=== PATIENT | female | born 1960 | race Caucasian/White ===

== ENCOUNTER → 2016-07-30 | Outpatient (CLI) | payer MEDICARE ==
[2014-03-29 10:52] VITALS: BP 134/63
[~2016-07-30] MED LIST: ALLO300T PO; ASPI-482 PO; CA C1TAB28 PO; CINN500C PO; DOXA4TAB3 PO; FERR325T3 PO; FLUO40CA2 PO; FURO40TA4 PO; HYDR50TA6 PO; LEVO88TA4 PO; LISI-334 PO; LORA10CA PO; LUTE1CAP PO; MAGN250T PO; METF-620 PO; METO-269 PO; MULT1CAP15 PO; MUPI22OI2 TP; NAPR220T70 PO; OMEP40CA5 PO; OXYC5CAP3 PO; PIOG45TA19 PO; POTA20TA12 PO; RANI150C PO; SIMV40TA3 PO; UBID100C12 PO
--- NOTE | 2016-07-30 12:38 | RAD ---
Indication six-month follow-up. Targeted ultrasound of the left breast was performed. Examination was targeted to the 3:00 position of the breast where a well-defined mass was seen on an examination 02/21/2016. Previously demonstrated mass is again seen. This mass now measures 0.6 x 0.4 cm whereas previously the corresponding measurements were 0.6 x 0.6. The finding remains most compatible with a cyst. Follow-up bilateral mammography is suggested in January of this year and, depending on the results of the mammogram, further ultrasound imaging could be performed. IMPRESSION: Known mass at the 3:00 position of the left breast persists but appears slightly smaller. Follow-up mammography in 6 months. Probably benign. BI-RADS 3
== END | disposition home or self-care (01) ==
LOC: KCIC US 11:55
PROVIDERS: ATTEND Family Medicine
DX: R92.8 Other abnormal and inconclusive findings on diagnostic imaging of breast (principal)
CPT/HCPCS: 76641

== ENCOUNTER → 2017-02-15 | Outpatient (CLI) | payer MEDICARE ==
[2014-03-29 10:52] VITALS: BP 134/63
[~2017-02-15] MED LIST changes: -CINN500C PO; +CINN500C2 PO; -MAGN250T PO; +MAGN250T2 PO; +OXYC5CAP PO; -OXYC5CAP3 PO; -PIOG45TA19 PO; +PIOG45TA40 PO; -UBID100C12 PO; +UBID100C40 PO
--- NOTE | 2017-02-15 15:06 | KCIC ---
DATE: 02/15/2017 EXAM: MAMMO VEGA DIAG BILAT Bilateral digital diagnostic mammography to include digital breast tomosynthesis (3D mammography) HISTORY: Six-month follow-up of nodule in the left breast. COMPARISON: 02/11/2016 This study was interpreted with the benefit of Computerized Aided Detection (CAD). The breast parenchyma shows scattered fibroglandular densities. Breast parenchyma level B. FINDINGS: Two Digital MLO and CC mammograms of both breasts were obtained. Additionally digital breast tomosynthesis (3D mammography) images of both breasts in the MLO and CC projections were performed. Comparison study is dated 02/13/2016. Additional comparison is made to left breast ultrasound dated 07/30/2016. The breast parenchyma is composed of scattered fibroglandular densities which can obscure a lesion on mammography (breast density code B). No spiculated mass is seen. No malignant appearing calcification or area of architectural distortion is noted. The nodule within the upper outer quadrant left breast has decreased in size since the previous examination. It represented a simple cyst on ultrasound. No new mass lesion is seen. Digital breast tomosynthesis images demonstrate no spiculated mass or malignant appearing calcification. I would recharacterize the patient's mammograms BI-RADS Category 2 benign findings with recommendation for routine yearly screening mammography for follow-up. IMPRESSION: BI-RADS Category 2 benign findings. There is no mammographic evidence of malignancy. Routine yearly screening mammography is recommended for follow-up. BI-RADS CATEGORY: 2 BENIGN FINDING(S) RECOMMENDED FOLLOW-UP: 12M 12 MONTH FOLLOW-UP PQRS compliance statement: Patient information was entered into a reminder system with a target due date 02/15/2017 for the next mammogram. Mammography is a sensitive method for finding small breast cancers, but it does not detect them all and is not a substitute for careful clinical examination. A negative mammogram does not negate a clinically suspicious finding and should not result in delay in biopsying a clinically suspicious abnormality. "Our facility is accredited by the [employer] Mammography Program."
== END | disposition home or self-care (01) ==
LOC: KCIC MAMMO 12:29
PROVIDERS: ATTEND Family Medicine
DX: N63.20 Unspecified lump in the left breast, unspecified quadrant (principal)
CPT/HCPCS: G0204; G0279; 77062; 77066

== ENCOUNTER 2017-12-21 10:06 | Inpatient (IN) | payer MEDICARE ==
[~2017-12-21] VITALS: Ht 160 cm; Wt 143.8 kg
[~2017-12-21 10:06] MED LIST changes: -METF-620 PO; +METF10007 PO
[2017-12-21] MEDS ORDERED: IPRATRPIUM/ALBUTEROL 0.5/2.5MG 3 ML NEBU. NEB ONE (11:30)
--- NOTE | 2017-12-21 11:37 | PHYS DOC ---
Past Medical History Past Medical History: Anemia, Diabetes-Type II, High Cholesterol, Hypertension , Hypothyroid, MRSA, Other Additional Past Medical Histor: gout, sleep apnea, acid reflux Past Surgical History: Hysterectomy, Tonsillectomy, Other Additional Past Surgical Histo: back surgery x 2, knee surgery Alcohol Use: None Drug Use: None Adult General Chief Complaint Chief Complaint: Congestion HPI HPI Patient is a 57-year-old female, with multiple underlying health problems, including obesity, diabetes, hypertension, anemia, and chronic venous stasis, who presents to the emergency department for evaluation. She states that for the past 3 Weeks, she has had nasal congestion, hoarseness in her voice, and a cough. She states that her cough has occasionally been productive of yellowish sputum. This last occurred several days ago. She has not had any chest pain, either pleuritic or exertional, but does have some soreness in her chest from coughing so much. She has seen 2 covering physicians for her primary care provider and been on 2 rounds of antibiotics, doxycycline and amoxicillin, and has also been on Tessalon Perles and Phenergan With Codeine, without relief. She denies any dizziness or lightheadedness, numbness, weakness, pleuritic chest pain, exertional chest pain, orthopnea, and although she has had some low- grade fevers subjectively over the past few days has not been febrile recently. There are no alleviating or exacerbating factors to her symptoms otherwise. Review of Systems Review of Systems Constitutional: Denies lethargy, or focal weakness. Reports generalized fatigue. [] Eyes: Denies change in visual acuity, redness, or eye pain [] HENT: Denies sore throat. Reports nasal congestion and hoarseness. [] Respiratory: Denies pleuritic pain.[] Cardiovascular: No additional information not addressed in HPI [] GI: Denies abdominal pain, nausea, vomiting, bloody stools or diarrhea [] : Denies dysuria or hematuria [] Musculoskeletal: Denies back pain or joint pain [] Integument: Denies rash or skin lesions [] Neurologic: Denies headache, focal weakness or sensory changes [] Endocrine: Denies polyuria or polydipsia [] All other systems were reviewed and found to be within normal limits, except as documented in this note. Current Medications Current Medications Current Medications Medications (Trade) Dose Ordered Sig/Trent Start Time Stop Time Status Last Admin Dose Admin Albuterol/ Ipratropium (Duoneb) 3 ml 1X ONCE 12/21/17 11:30 12/21/17 11:31 DC Allergies Allergies Allergies Coded Allergies Type Severity Reaction Last Updated Verified Sulfa (Sulfonamide Antibiotics) Allergy Severe ANAPHYLAXIS 03/29/14 Yes acetaminophen Allergy Intermediate FEELING OF HAVING A HEART ATTACK 03/29/14 Yes latex Allergy Intermediate 03/29/14 Yes morphine Allergy Intermediate Itching 03/29/14 Yes Physical Exam Physical Exam PHYSICAL EXAM: CONSTITUTIONAL: Well developed, well nourished HEAD: normocephalic, atraumatic EENT: PERRL, EOMI. Conjunctivae normal color, sclerae non-icteric; moist mucous membranes. Nasal congestion is present. The oropharynx is not erythematous. NECK: Supple, non-tender; no meningismus. LUNGS: Lungs CTA, breathing even and unlabored. Normal air movement. There are no rales, wheezes, or rhonchi. HEART: Regular rate and rhythm, no murmur CHEST: No deformity; non-tender ABDOMEN: The abdomen is soft, and non-tender, no masses or bruits. EXTREM: Normal ROM; no deformity, no calf tenderness. Normal pulses palpable in all extremities. There is bilateral pedal edema, with chronic thickening of the skin and erythema, consistent with chronic venous stasis. SKIN: No rash; no diaphoresis NEURO: Alert; normal speech and cognition; CN's grossly intact; strength grossly intact without focal deficit. BACK: No CVA TTP. Current Patient Data Vital Signs Vital Signs Date Time Temp Pulse Resp B/P (MAP) Pulse Ox O2 Delivery O2 Flow Rate FiO2 12/21/17 11:48 97 Room Air 12/21/17 11:20 98.6 66 22 133/61 (85) 98.6 Lab Values Laboratory Tests Test 12/21/17 12:15 White Blood Count 11.5 x10^3/uL (4.0-11.0) H Red Blood Count 3.38 x10^6/uL (3.50-5.40) L Hemoglobin 9.8 g/dL (12.0-15.5) L Hematocrit 29.0 % (36.0-47.0) L Mean Corpuscular Volume 86 fL (79-100) Mean Corpuscular Hemoglobin 29 pg (25-35) Mean Corpuscular Hemoglobin Concent 34 g/dL (31-37) Red Cell Distribution Width 17.6 % (11.5-14.5) H Platelet Count 377 x10^3/uL (140-400) Neutrophils (%) (Auto) 86 % (31-73) H Lymphocytes (%) (Auto) 7 % (24-48) L Monocytes (%) (Auto) 7 % (0-9) Eosinophils (%) (Auto) 0 % (0-3) Basophils (%) (Auto) 1 % (0-3) Neutrophils # (Auto) 9.8 x10^3uL (1.8-7.7) H Lymphocytes # (Auto) 0.8 x10^3/uL (1.0-4.8) L Monocytes # (Auto) 0.8 x10^3/uL (0.0-1.1) Eosinophils # (Auto) 0.0 x10^3/uL (0.0-0.7) Basophils # (Auto) 0.1 x10^3/uL (0.0-0.2) Platelet Estimate Pending Sodium Level 126 mmol/L (136-145) L Potassium Level 4.6 mmol/L (3.5-5.1) Chloride Level 88 mmol/L (98-107) L Carbon Dioxide Level 29 mmol/L (21-32) Anion Gap 9 (6-14) Blood Urea Nitrogen 17 mg/dL (7-20) Creatinine 1.0 mg/dL (0.6-1.0) Estimated GFR (Cockcroft-Gault) 57.1 BUN/Creatinine Ratio 17 (6-20) Glucose Level 106 mg/dL (70-99) H Calcium Level 8.8 mg/dL (8.5-10.1) Total Bilirubin 0.8 mg/dL (0.2-1.0) Aspartate Amino Transferase (AST) 16 U/L (15-37) Alanine Aminotransferase (ALT) 19 U/L (14-59) Alkaline Phosphatase 107 U/L (46-116) Creatine Kinase 35 U/L (26-192) Creatine Kinase MB (Mass) 0.7 ng/mL (0.0-3.6) Creatine Kinase MB Relative Index % (0-4) Troponin I Quantitative < 0.017 ng/mL (0.000-0.055) AY-Mrw-S-Type Natriuretic Peptide 694 pg/mL (0-124) H Total Protein 6.5 g/dL (6.4-8.2) Albumin 3.1 g/dL (3.4-5.0) L Albumin/Globulin Ratio 0.9 (1.0-1.7) L Laboratory Tests 12/21/17 12:15 Laboratory Tests 12/21/17 12:15 EKG EKG [Normal sinus rhythm at a rate of 59 beats for minute, normal axis, normal intervals. There are no acute ischemic ST/T changes.] Radiology/Procedures Radiology/Procedures [PROCEDURE: CHEST PA & LATERAL PA and lateral chest radiograph. History: Cough, bronchitis for 3 weeks. Comparison: CT chest June 29, 2006. Findings: Cardiac silhouette is mildly enlarged. Aortic atherosclerosis is seen. No pneumothorax is seen. There is mild blunting of costophrenic angles on lateral view, suggesting small bilateral pleural effusions. Pulmonary vascularity appears accentuated, suggesting changes of mild congestive heart failure. No large consolidation is seen. There is focal lateral wall pleural thickening involving the left lower hemithorax, apparently new. Impression: 1. Evidence of mild congestive heart failure. Small bilateral pleural effusions. 2. Focal lateral pleural thickening involving the left lower hemithorax, apparently new in the interval. ] Course & Med Decision Making Course & Med Decision Making Pertinent Labs and Imaging studies reviewed. (See chart for details) [2:05 PM: The patient's condition remained stable. I have no old labs for comparison. She is noted to be hyponatremic. Do wonder whether her persistent cough likely related to a CHF exacerbation. The case was discussed with the hospitalist will admit the patient for further evaluation and treatment.] Dragon Disclaimer Dragon Disclaimer This electronic medical record was generated, in whole or in part, using a voice recognition dictation system. Departure Departure Impression: Primary Impression: Hyponatremia Additional Impressions: CHF (congestive heart failure) Cough Disposition: ADMITTED INPATIENT Admitting Physician: Marcus Islas Referrals: SHANNAN VALENTINE (PCP) Problem Qualifiers LAUREN ABRAHAM MD Dec 21, 2017 11:37
--- NOTE | 2017-12-21 11:51 | EKG ---
[address] [place] [id number] Test Date: 2017-12-21 Test Time: 11:33:09 Pat Name: LARY HELLER Department: Room: Gender: F [employer] Operator: : [id number] Requested By: LAUREN ABRAHAM Order Number: [id number] Reading MD: Yordan Powers Measurements Intervals Siler Rate: 59 P: 0 VA: 178 QRS: 25 QRSD: 94 T: 29 QT: 430 QTc: 430 Interpretive Statements SINUS RHYTHM QRS(T) CONTOUR ABNORMALITY CONSIDER INFERIOR MYOCARDIAL DAMAGE Electronically Signed On 12-23-2017 11:21:35 CDT by Yordan Powers
--- NOTE | 2017-12-21 12:05 | RAD ---
PA and lateral chest radiograph. History: Cough, bronchitis for 3 weeks. Comparison: CT chest June 29, 2006. Findings: Cardiac silhouette is mildly enlarged. Aortic atherosclerosis is seen. No pneumothorax is seen. There is mild blunting of costophrenic angles on lateral view, suggesting small bilateral pleural effusions. Pulmonary vascularity appears accentuated, suggesting changes of mild congestive heart failure. No large consolidation is seen. There is focal lateral wall pleural thickening involving the left lower hemithorax, apparently new. Impression: 1. Evidence of mild congestive heart failure. Small bilateral pleural effusions. 2. Focal lateral pleural thickening involving the left lower hemithorax, apparently new in the interval. Electronically signed by: Blue Avery MD (12/21/2017 12:02 PM) [place] [id number]
[2017-12-21 13:11] LABS: CREATINE KINASE 35 U/L (26-192)
[2017-12-21 13:12] LABS: ALBUMIN 3.1 g/dL (3.4-5.0); ALBUMIN/GLOBULIN RATIO 0.9 (1.0-1.7); CALCIUM 8.8 mg/dL (8.5-10.1); GFR 57.1; TOTAL BILIRUBIN 0.8 mg/dL (0.2-1.0); TOTAL PROTEIN 6.5 g/dL (6.4-8.2)
[2017-12-21 13:13] LABS: POTASSIUM 4.6 mmol/L (3.5-5.1)
[2017-12-21 13:44] LABS: BASO # 0.1 x10^3/uL (0.0-0.2); BASO % 1 % (0-3); EOS % 0 % (0-3); HEMOGLOBIN 9.8 g/dL (12.0-15.5); LYMPH # 0.8 x10^3/uL (1.0-4.8); LYMPH % 7 % (24-48); MEAN CORPUSCULAR HEMOGLOBIN 29 pg (25-35); MEAN CORPUSCULAR HGB CONC 34 g/dL (31-37); MEAN CORPUSCULAR VOLUME 86 fL (79-100); MONO # 0.8 x10^3/uL (0.0-1.1); MONO % 7 % (0-9); NEUT # 9.8 x10^3uL (1.8-7.7); NEUT % 86 % (31-73); PLATELET COUNT 377 x10^3/uL (140-400); RED BLOOD COUNT 3.38 x10^6/uL (3.50-5.40); RED CELL DISTRIBUTION WIDTH 17.6 % (11.5-14.5); WHITE BLOOD COUNT 11.5 x10^3/uL (4.0-11.0)
[2017-12-21] MEDS ORDERED: FUROSEMIDE 40 MG/4 ML VIAL. IVP ONE (14:15)
[2017-12-21 14:45] LABS: % BANDS 5 % (0-9); % LYMPHS 8 % (24-48); % MONOS 11 % (0-10); % SEGS 76 % (35-66)
[2017-12-21 14:48] LABS: ANISOCYTOSIS SLIGHT; OVALOCYTES FEW; PLT ESTIMATE ADEQUATE (ADEQUATE)
[2017-12-21 15:00] VITALS: BP 135/61
[2017-12-21] MEDS ORDERED: DEXTROSE 50% 25 GM / 50ML DISP.SYRIN. IV PRN (15:30)
--- NOTE | 2017-12-21 15:33 | PDOC2 ---
CARDIAC CONSULT DATE OF CONSULT Date of Consult DATE: 12/21/17 TIME: 15:24 REASON FOR CONSULT Reason for Consult: chf REFERRING PHYSICIAN Referring Physician: Fullbright SOURCE Source: Chart review, Patient HISTORY OF PRESENT ILLNESS HISTORY OF PRESENT ILLNESS This is a pleasant 57 yo female admitted for complains of progressive cough and SOA. Reports that she has been having nasal congestion which progressed to cough and productive with mostly yellow sputum and at times with green sputum. She was started on amoxicillin on 12/11 by her PCP and then changed to doxycycline last Wednesday because she was not getting any better. No recorded fever but possibly chills. She has been taking mucinex, tessalon pearls. She has been craving water and has been drinking about 3-4 L of water daily. She has multiple medications and has been compliant with her medications including HCTZ, lisinopril and her DM medications. She has not been able to use her CPAP with nasal pillow in the last 2 weeks due to her nasal congestion. She has not able to sleep well and just has been taking cat naps intermittently. Denies any chest pain or palpiations. Reports no significant swelling to her LE. No past CAD, CHF, VTE, but has taken lasix in the past due to chronic leg edema. PAST MEDICAL HISTORY Cardiovascular: HTN, Hyperlipidemia, Other (chronic leg edema) Pulmonary: Other (KAYLAH) CENTRAL NERVOUS SYSTEM: Other (No pertinent history) GI: GERD, Hemorrhoids, Other (hiatal hernia) Heme/Onc: Anemia NOS Hepatobiliary: No pertinent hx Psych: Anxiety Musculoskeletal: low back pain (sacroilitis), Osteoarthritis, Other Rheumatologic: Gout Infectious disease: Other (MRSA) ENT: Allergic Rhinitis Renal/: No pertinent hx Endocrine: Diabetes (2), Hypothyroidism Dermatology: Other (venous dermatitis) PAST SURGICAL HISTORY Past Surgical History: Arthroscopy (right knee), Hysterectomy, Other (back surgery) FAMILY HISTORY Family History noncontributory to CV SOCIAL HISTORY Smoke: Quit (17 yrs quit 1993) ALCOHOL: none Drugs: None Lives: with Family ALLERGIES ALLERGIES: Coded Allergies: Sulfa (Sulfonamide Antibiotics) (Verified Allergy, Severe, ANAPHYLAXIS, ) acetaminophen (Verified Allergy, Intermediate, FEELING OF HAVING A HEART ATTACK, 03/29/14) latex (Verified Allergy, Intermediate, 03/29/14) TAPE PULLS SKIN OFF morphine (Verified Allergy, Intermediate, Itching, 03/29/14) ROS Review of System 14 point ROS evaluated with pertinent positives noted per HPI PHYSICAL EXAM General: Alert, Oriented X3, Cooperative, No acute distress HEENT: Mucous membr. moist/pink Lungs: Other (basialr crackles) Heart: Regular rate, Other (distant heart sounds) Abdomen: Soft, Other (obese) Extremities: No cyanosis, Other (1-2+ bilateral LE pitting edema) Skin: Other (healed right otto wound. venous dermatitis with dry skin to LE. ) Neuro: Normal speech, Sensation intact Psych/Mental Status: Mental status NL, Mood NL MUSCULOSKELETAL: Osteoarthritic changes both hands VITALS VITALS Vital Signs Date Time Temp Pulse Resp B/P (MAP) Pulse Ox O2 Delivery O2 Flow Rate FiO2 12/21/17 14:00 68 18 150/65 (93) 97 Room Air 12/21/17 11:20 98.6 98.6 LABS Lab: Laboratory Tests Test 12/21/17 12:15 White Blood Count 11.5 x10^3/uL (4.0-11.0) Red Blood Count 3.38 x10^6/uL (3.50-5.40) Hemoglobin 9.8 g/dL (12.0-15.5) Hematocrit 29.0 % (36.0-47.0) Mean Corpuscular Volume 86 fL (79-100) Mean Corpuscular Hemoglobin 29 pg (25-35) Mean Corpuscular Hemoglobin Concent 34 g/dL (31-37) Red Cell Distribution Width 17.6 % (11.5-14.5) Platelet Count 377 x10^3/uL (140-400) Neutrophils (%) (Auto) 86 % (31-73) Lymphocytes (%) (Auto) 7 % (24-48) Monocytes (%) (Auto) 7 % (0-9) Eosinophils (%) (Auto) 0 % (0-3) Basophils (%) (Auto) 1 % (0-3) Neutrophils # (Auto) 9.8 x10^3uL (1.8-7.7) Lymphocytes # (Auto) 0.8 x10^3/uL (1.0-4.8) Monocytes # (Auto) 0.8 x10^3/uL (0.0-1.1) Eosinophils # (Auto) 0.0 x10^3/uL (0.0-0.7) Basophils # (Auto) 0.1 x10^3/uL (0.0-0.2) Segmented Neutrophils % 76 % (35-66) Band Neutrophils % 5 % (0-9) Lymphocytes % 8 % (24-48) Monocytes % 11 % (0-10) Platelet Estimate Adequate (ADEQUATE) Large Platelets Few Giant Platelets Few Basophilic Stippling Present Anisocytosis Slight Ovalocytes Few Sodium Level 126 mmol/L (136-145) Potassium Level 4.6 mmol/L (3.5-5.1) Chloride Level 88 mmol/L (98-107) Carbon Dioxide Level 29 mmol/L (21-32) Anion Gap 9 (6-14) Blood Urea Nitrogen 17 mg/dL (7-20) Creatinine 1.0 mg/dL (0.6-1.0) Estimated GFR (Cockcroft-Gault) 57.1 BUN/Creatinine Ratio 17 (6-20) Glucose Level 106 mg/dL (70-99) Calcium Level 8.8 mg/dL (8.5-10.1) Total Bilirubin 0.8 mg/dL (0.2-1.0) Aspartate Amino Transf (AST/SGOT) 16 U/L (15-37) Alanine Aminotransferase (ALT/SGPT) 19 U/L (14-59) Alkaline Phosphatase 107 U/L (46-116) Creatine Kinase 35 U/L (26-192) Creatine Kinase MB (Mass) 0.7 ng/mL (0.0-3.6) Creatine Kinase MB Relative Index % (0-4) Troponin I Quantitative < 0.017 ng/mL (0.000-0.055) PQ-Vej-I-Type Natriuretic Peptide 694 pg/mL (0-124) Total Protein 6.5 g/dL (6.4-8.2) Albumin 3.1 g/dL (3.4-5.0) Albumin/Globulin Ratio 0.9 (1.0-1.7) ASSESSMENT/PLAN ASSESSMENT/PLAN 1. Acute bronchitis/URI 2. Acute diastolic CHF: induced by 3-4L of daily H20 ingestion, KAYLAH/obesity and bronchitis. suspect pulmonary HTN 3. HTN: controlled. on home lisinopril and HCTZ. 4. Hx of depression: on prozac 5. Hyponatremia/polydipsia: multifactorial as above 6. Morbid obesity: BMI 57 7. DM2 8. HLP 9. Polypharmacy Recommendations 1. TTE, lipids. CT chest noncontrast. 2. Lasix x1 received in ED. BMP and Mg in AM. Lasix therapy. 3. Unable to utilize CPAP currently due to nasal congestion. May utilize O2 NC at hs. 4. Continue with secondary prevention measures. BHARTI FIERRO CLEAN ROOM TECHNICIAN Dec 21, 2017 15:33
[2017-12-21] MEDS ORDERED: LEVO125T PO (16:01)
[2017-12-21 16:03] LABS: CHOLESTEROL/HDL RATIO 2.4
[2017-12-21] MEDS: MUPIROCIN 2 % NASAL OINTMENT 22GM TUBE. TP SCH (16:15)
[2017-12-21 16:22] LABS: BILIRUBIN,URINE NEGATIVE (NEG); CLARITY,URINE CLEAR; COLOR,URINE YELLOW; NITRITE,URINE NEGATIVE (NEG); PROTEIN,URINE NEGATIVE (NEG-TRACE)
[2017-12-21 16:28] LABS: SQUAMOUS EPITHELIAL CELL,UR MANY /LPF
[2017-12-21 16:29] LABS: BACTERIA,URINE FEW /HPF (0-FEW); RBC,URINE 0 /HPF (0-2); YEAST,URINE PRESENT /HPF
--- NOTE | 2017-12-21 16:40 | PDOC1 ---
History and Physical Date of Admission Date of Admission DATE: 12/21/17 TIME: 16:40 Identification/Chief Complaint Chief Complaint cough and productive with mostly yellow -green sputum. She was started on amoxicillin on 12/11 by her PCP and then changed to doxycycline last Wednesday will rx with iv zosyn, was not getting any better. No recorded fever but possibly chills. She has been taking mucinex, tessalon pearls, has been craving water and has been drinking about 3-4 L of water daily. Past Medical History Past Medical History Past Medical History Past Medical History Past Medical History: Anemia, Diabetes-Type II, High Cholesterol, Hypertension , Hypothyroid, MRSA, Other Additional Past Medical Histor: gout, sleep apnea, acid reflux Past Surgical History: Hysterectomy, Tonsillectomy, Other Additional Past Surgical Histo: back surgery x 2, knee surgery Alcohol Use: None Drug Use: None family hx obesity Cardiovascular: HTN, Hyperlipidemia, Other (chronic leg edema) Pulmonary: Other (KAYLAH) CENTRAL NERVOUS SYSTEM: Other (No pertinent history) GI: GERD, Hemorrhoids, Other (hiatal hernia) Heme/Onc: Anemia NOS Hepatobiliary: No pertinent hx Psych: Anxiety Musculoskeletal: low back pain (sacroilitis), Osteoarthritis, Other Rheumatologic: Gout Infectious disease: Other (MRSA) ENT: Sincusitis, Allergic Rhinitis Renal/: No pertinent hx Endocrine: Diabetes (2), Hypothyroidism Dermatology: Cellulitis, Other (venous dermatitis) Past Surgical History Past Surgical History: Arthroscopy (right knee), Hysterectomy, Other (back surgery) Family History Family History: Hypertension Family History: Parent Social History Smoke: No (17 yrs quit 1993) ALCOHOL: none Drugs: None Current Problem List Problem List Problems Medical Problems: (1) CHF (congestive heart failure) Status: Acute (2) Cough Status: Acute (3) Hyponatremia Status: Acute Current Medications Current Medications Current Medications Albuterol/ Ipratropium (Duoneb) 3 ml 1X ONCE NEB ; Start 12/21/17 at 11:30; Stop 12/21/17 at 11:31; Status DC Furosemide (Lasix) 40 mg 1X ONCE IVP ; Start 12/21/17 at 14:15; Stop at 14:16; Status DC Insulin Human Lispro (HumaLOG) 0-7 UNITS TIDWMEALS SQ ; Start 12/21/17 at 17:00 Dextrose (Dextrose 50%-Water Syringe) 12.5 gm PRN Q15MIN PRN IV SEE COMMENTS; Start 12/21/17 at 15:30 Allopurinol (Zyloprim) 300 mg DAILY PO ; Start 12/22/17 at 09:00 Aspirin (Ecotrin) 81 mg DAILY PO ; Start 12/22/17 at 09:00 Doxazosin Mesylate (Cardura) 2 mg HS PO ; Start 12/21/17 at 21:00 Lisinopril (Prinivil) 20 mg DAILY PO ; Start 12/22/17 at 09:00 Ferrous Sulfate (Feosol) 650 mg DAILYWBKFT PO ; Start 12/22/17 at 08:00 Fluoxetine HCl (PROzac) 40 mg DAILY PO ; Start 12/22/17 at 09:00 Hydrochlorothiazide (Hydrodiuril) 50 mg DAILY PO ; Start 12/22/17 at 09:00 Levothyroxine Sodium (Synthroid) 125 mcg DAILY06 PO ; Start 12/22/17 at 06:00 Cetirizine HCl (ZyrTEC) 10 mg DAILY PO ; Start 12/22/17 at 09:00 Non-Formulary Medication (Magnesium ) 250 mg DAILY PO ; Start 12/22/17 at 09:00 ; Status UNV Non-Formulary Medication (Metformin Hcl ) 1,000 mg BID PO ; Start 12/21/17 at 21:00; Status UNV Non-Formulary Medication (Metoprolol Succinate (Toprol Xl)) 150 mg DAILY PO ; Start 12/22/17 at 09:00; Status UNV Non-Formulary Medication (Naproxen Sodium (Aleve)) 220 mg PRN DAILY PO ; Start 12/21/17 at 16:00; Status UNV Non-Formulary Medication (Omeprazole ) 40 mg DAILY PO ; Start 12/22/17 at 09:00 ; Status UNV Non-Formulary Medication (Pioglitazone Hcl (Actos)) 45 mg DAILY PO ; Start at 09:00; Status UNV Non-Formulary Medication (Ranitidine Hcl ) 150 mg BID PO ; Start 12/21/17 at 21 :00; Status UNV Non-Formulary Medication (Simvastatin ) 40 mg DAILY PO ; Start 12/22/17 at 09: 00; Status UNV Mupirocin (Bactroban) 22 luc PRN DAILY TP ; Start 12/21/17 at 16:15; Status UNV Active Scripts Active Reported Synthroid (Levothyroxine Sodium) 125 Mcg Tablet 1 Tab PO DAILY Lisinopril 20 Mg Tablet 1 Tab PO DAILY Ranitidine Hcl 150 Mg Capsule 150 Mg PO BID Aleve (Naproxen Sodium) 220 Mg Tablet 220 Mg PO PRN DAILY Mupirocin Ointment (Mupirocin) 22 Gm Oint...g. 22 Gm TP PRN DAILY Fluoxetine Hcl 40 Mg Capsule 40 Mg PO DAILY Aspir 81 (Aspirin) 81 Mg Tablet.dr 81 Mg PO DAILY Allopurinol 300 Mg Tablet 300 Mg PO DAILY Ferrous Sulfate 325 Mg Tablet.dr 650 Mg PO DAILY Claritin (Loratadine) 10 Mg Capsule 10 Mg PO DAILY Hydrochlorothiazide Tablet (Hydrochlorothiazide) 50 Mg Tablet 50 Mg PO DAILY Actos (Pioglitazone Hcl) 45 Mg Tablet 45 Mg PO DAILY Toprol Xl (Metoprolol Succinate) 50 Mg Tab.er.24h 150 Mg PO DAILY Doxazosin Mesylate 4 Mg Tablet 2 Mg PO HS Metformin Hcl 1,000 Mg Tablet 1,000 Mg PO BID Simvastatin 40 Mg Tablet 40 Mg PO DAILY Omeprazole 40 Mg Capsule.dr 40 Mg PO DAILY Co Q-10 (Ubidecarenone) 100 Mg Capsule 100 Mg PO Cinnamon (Cinnamon Bark) 500 Mg Capsule 500 Mg PO DAILY Lutein-Zeaxanthin 25-5 Mg Sfgl (Lutein/Zeaxanthin) 1 Each Capsule 1 Each PO DAILY Magnesium 250 Mg Tablet 250 Mg PO DAILY Allergies Allergies: Coded Allergies: Sulfa (Sulfonamide Antibiotics) (Verified Allergy, Severe, ANAPHYLAXIS, ) acetaminophen (Verified Allergy, Intermediate, FEELING OF HAVING A HEART ATTACK, 03/29/14) latex (Verified Allergy, Intermediate, 03/29/14) TAPE PULLS SKIN OFF morphine (Verified Allergy, Intermediate, Itching, 03/29/14) ROS Review of System Review of Systems Review of Systems Constitutional: Denies lethargy, or focal weakness. pos generalized fatigue.[] Eyes: Denies change in visual acuity, redness, or eye pain [] HENT: Denies sore throat. Reports nasal congestion and hoarseness. [] Respiratory: Denies pleuritic pain.[] Cardiovascular: No additional information not addressed in HPI [] GI: Denies abdominal pain, nausea, vomiting, bloody stools or diarrhea [] : Denies dysuria or hematuria [] Musculoskeletal: Denies back pain or joint pain [] Integument: Denies rash or skin lesions [] Neurologic: Denies headache, focal weakness or sensory changes [] Endocrine: Denies polyuria or polydipsia [] 14 pt systems were reviewed and found to be within normal limits, except as documented . Current Medications HEENT: YES: Nasal congestion ENDOCRINE: No: Breast Changes, Galactorrhea, Hair Pattern Changes, Hot Flashes , Malaise/lethargy, Mood Swings, Palpitations, Polydipsia/polyuria, Skin Changes , Temperature Intolerance, Unexpected Weight Changes, Other Breast: No New/Changing Breast Lumps, No Nipple changes, No Nipple discharge, No Other Respiratory: YES: Cough, SOB with excertion Gastrointestinal: No Nausea, No Vomiting, No Abdominal Pain, No Diarrhea, No Constipation, No Melena, No Hematochezia, No Other Musculoskeletal: Yes Joint Stiffness Physical Exam Physical Exam Physical Exam Physical Exam PHYSICAL EXAM: CONSTITUTIONAL: Well developed, well nourished, very obese HEAD: normocephalic, atraumatic EENT: PERRL, EOMI. Conjunctivae normal color, sclerae non-icteric; moist mucous membranes. oropharynx is not erythematous. NECK: Supple, non-tender; no meningismus. LUNGS: Lungs CTA, breathing even and unlabored. Normal air movement. There are no rales, wheezes, few rhonchi. HEART: Regular rate and rhythm, no murmur CHEST: No deformity; non-tender ABDOMEN: The abdomen is soft, and non-tender, no masses or bruits. EXTREM: Normal ROM; no deformity, no calf tenderness. Normal pulses palpable in all extremities. There is bilateral pedal edema, with chronic thickening of the skin and erythema, consistent with chronic venous stasis. SKIN: No rash; no diaphoresis NEURO: Alert; normal speech and cognition; CN's grossly intact; strength grossly intact without focal deficit. BACK: No CVA TTP. General: Oriented X3, Cooperative HEENT: Atraumatic Lungs: Normal air movement Heart: S1S2 Abdomen: Soft Rectal Exam: not examined PELVIC: Examination not indicated Extremities: No cyanosis Neuro: Cranial nerves 3-12 NL Vitals Vitals Vital Signs Date Time Temp Pulse Resp B/P (MAP) Pulse Ox O2 Delivery O2 Flow Rate FiO2 12/21/17 15:00 98.1 61 20 135/61 (85) 97 Room Air 98.1 Labs Labs Laboratory Tests Test 12/21/17 11:20 12/21/17 12:15 Urine Collection Type Unknown Urine Color Yellow Urine Clarity Clear Urine pH 7.0 Urine Specific [place] 1.020 Urine Protein Negative mg/dL (NEG-TRACE) Urine Glucose (UA) Negative mg/dL (NEG) Urine Ketones (Stick) Negative mg/dL (NEG) Urine Blood Negative (NEG) Urine Nitrite Negative (NEG) Urine Bilirubin Negative (NEG) Urine Urobilinogen Dipstick 1.0 mg/dL (0.2 mg/dL) Urine Leukocyte Esterase Small (NEG) Urine RBC 0 /HPF (0-2) Urine WBC 1-4 /HPF (0-4) Urine Squamous Epithelial Cells Many /LPF Urine Bacteria Few /HPF (0-FEW) Urine Yeast Present /HPF White Blood Count 11.5 x10^3/uL (4.0-11.0) Red Blood Count 3.38 x10^6/uL (3.50-5.40) Hemoglobin 9.8 g/dL (12.0-15.5) Hematocrit 29.0 % (36.0-47.0) Mean Corpuscular Volume 86 fL (79-100) Mean Corpuscular Hemoglobin 29 pg (25-35) Mean Corpuscular Hemoglobin Concent 34 g/dL (31-37) Red Cell Distribution Width 17.6 % (11.5-14.5) Platelet Count 377 x10^3/uL (140-400) Neutrophils (%) (Auto) 86 % (31-73) Lymphocytes (%) (Auto) 7 % (24-48) Monocytes (%) (Auto) 7 % (0-9) Eosinophils (%) (Auto) 0 % (0-3) Basophils (%) (Auto) 1 % (0-3) Neutrophils # (Auto) 9.8 x10^3uL (1.8-7.7) Lymphocytes # (Auto) 0.8 x10^3/uL (1.0-4.8) Monocytes # (Auto) 0.8 x10^3/uL (0.0-1.1) Eosinophils # (Auto) 0.0 x10^3/uL (0.0-0.7) Basophils # (Auto) 0.1 x10^3/uL (0.0-0.2) Segmented Neutrophils % 76 % (35-66) Band Neutrophils % 5 % (0-9) Lymphocytes % 8 % (24-48) Monocytes % 11 % (0-10) Platelet Estimate Adequate (ADEQUATE) Large Platelets Few Giant Platelets Few Basophilic Stippling Present Anisocytosis Slight Ovalocytes Few Sodium Level 126 mmol/L (136-145) Potassium Level 4.6 mmol/L (3.5-5.1) Chloride Level 88 mmol/L (98-107) Carbon Dioxide Level 29 mmol/L (21-32) Anion Gap 9 (6-14) Blood Urea Nitrogen 17 mg/dL (7-20) Creatinine 1.0 mg/dL (0.6-1.0) Estimated GFR (Cockcroft-Gault) 57.1 BUN/Creatinine Ratio 17 (6-20) Glucose Level 106 mg/dL (70-99) Calcium Level 8.8 mg/dL (8.5-10.1) Total Bilirubin 0.8 mg/dL (0.2-1.0) Aspartate Amino Transf (AST/SGOT) 16 U/L (15-37) Alanine Aminotransferase (ALT/SGPT) 19 U/L (14-59) Alkaline Phosphatase 107 U/L (46-116) Creatine Kinase 35 U/L (26-192) Creatine Kinase MB (Mass) 0.7 ng/mL (0.0-3.6) Creatine Kinase MB Relative Index % (0-4) Troponin I Quantitative < 0.017 ng/mL (0.000-0.055) JZ-[id number]-M-Type Natriuretic Peptide 694 pg/mL (0-124) Total Protein 6.5 g/dL (6.4-8.2) Albumin 3.1 g/dL (3.4-5.0) Albumin/Globulin Ratio 0.9 (1.0-1.7) Triglycerides Level 67 mg/dL (0-150) Cholesterol Level 106 mg/dL (0-200) LDL Cholesterol, Calculated 49 mg/dL (0-100) VLDL Cholesterol, Calculated 13 mg/dL (0-40) Non-HDL Cholesterol Calculated 62 mg/dL (0-129) HDL Cholesterol 44 mg/dL (40-60) Cholesterol/HDL Ratio 2.4 Laboratory Tests Test 12/21/17 11:20 12/21/17 12:15 Urine Collection Type Unknown Urine Color Yellow Urine Clarity Clear Urine pH 7.0 Urine Specific [place] 1.020 Urine Protein Negative mg/dL (NEG-TRACE) Urine Glucose (UA) Negative mg/dL (NEG) Urine Ketones (Stick) Negative mg/dL (NEG) Urine Blood Negative (NEG) Urine Nitrite Negative (NEG) Urine Bilirubin Negative (NEG) Urine Urobilinogen Dipstick 1.0 mg/dL (0.2 mg/dL) Urine Leukocyte Esterase Small (NEG) Urine RBC 0 /HPF (0-2) Urine WBC 1-4 /HPF (0-4) Urine Squamous Epithelial Cells Many /LPF Urine Bacteria Few /HPF (0-FEW) Urine Yeast Present /HPF White Blood Count 11.5 x10^3/uL (4.0-11.0) Red Blood Count 3.38 x10^6/uL (3.50-5.40) Hemoglobin 9.8 g/dL (12.0-15.5) Hematocrit 29.0 % (36.0-47.0) Mean Corpuscular Volume 86 fL (79-100) Mean Corpuscular Hemoglobin 29 pg (25-35) Mean Corpuscular Hemoglobin Concent 34 g/dL (31-37) Red Cell Distribution Width 17.6 % (11.5-14.5) Platelet Count 377 x10^3/uL (140-400) Neutrophils (%) (Auto) 86 % (31-73) Lymphocytes (%) (Auto) 7 % (24-48) Monocytes (%) (Auto) 7 % (0-9) Eosinophils (%) (Auto) 0 % (0-3) Basophils (%) (Auto) 1 % (0-3) Neutrophils # (Auto) 9.8 x10^3uL (1.8-7.7) Lymphocytes # (Auto) 0.8 x10^3/uL (1.0-4.8) Monocytes # (Auto) 0.8 x10^3/uL (0.0-1.1) Eosinophils # (Auto) 0.0 x10^3/uL (0.0-0.7) Basophils # (Auto) 0.1 x10^3/uL (0.0-0.2) Segmented Neutrophils % 76 % (35-66) Band Neutrophils % 5 % (0-9) Lymphocytes % 8 % (24-48) Monocytes % 11 % (0-10) Platelet Estimate Adequate (ADEQUATE) Large Platelets Few Giant Platelets Few Basophilic Stippling Present Anisocytosis Slight Ovalocytes Few Sodium Level 126 mmol/L (136-145) Potassium Level 4.6 mmol/L (3.5-5.1) Chloride Level 88 mmol/L (98-107) Carbon Dioxide Level 29 mmol/L (21-32) Anion Gap 9 (6-14) Blood Urea Nitrogen 17 mg/dL (7-20) Creatinine 1.0 mg/dL (0.6-1.0) Estimated GFR (Cockcroft-Gault) 57.1 BUN/Creatinine Ratio 17 (6-20) Glucose Level 106 mg/dL (70-99) Calcium Level 8.8 mg/dL (8.5-10.1) Total Bilirubin 0.8 mg/dL (0.2-1.0) Aspartate Amino Transf (AST/SGOT) 16 U/L (15-37) Alanine Aminotransferase (ALT/SGPT) 19 U/L (14-59) Alkaline Phosphatase 107 U/L (46-116) Creatine Kinase 35 U/L (26-192) Creatine Kinase MB (Mass) 0.7 ng/mL (0.0-3.6) Creatine Kinase MB Relative Index % (0-4) Troponin I Quantitative < 0.017 ng/mL (0.000-0.055) QF-Jgx-U-Type Natriuretic Peptide 694 pg/mL (0-124) Total Protein 6.5 g/dL (6.4-8.2) Albumin 3.1 g/dL (3.4-5.0) Albumin/Globulin Ratio 0.9 (1.0-1.7) Triglycerides Level 67 mg/dL (0-150) Cholesterol Level 106 mg/dL (0-200) LDL Cholesterol, Calculated 49 mg/dL (0-100) VLDL Cholesterol, Calculated 13 mg/dL (0-40) Non-HDL Cholesterol Calculated 62 mg/dL (0-129) HDL Cholesterol 44 mg/dL (40-60) Cholesterol/HDL Ratio 2.4 VTE Prophylaxis Ordered VTE Prophylaxis Devices: Yes VTE Pharmacological Prophylaxi: Yes Assessment/Plan Assessment/Plan impression 1. Acute bronchitis/URI 2. Acute diastolic CHF: excessive H20 ingestion, KAYLAH/obesity and bronchitis. pulmonary HTN 3. HTN: controlled. on home lisinopril and HCTZ. 4. Hx of depression: on prozac 5. Hyponatremia/polydipsia: 6. Morbid obesity:extreme 7. DM2 8. HLP 9. Polypharmacy plan 1. TTE, CT chest noncontrast. 2. Lasix x1 received in ED. BMP and Mg in AM. iv Lasix 3. Unable to utilize CPAP currently due to nasal congestion. O2 NC at hs. 4. secondary prevention measures. 5. glucose control JITENDRA BAIRD MD Dec 21, 2017 16:40
--- NOTE | 2017-12-21 16:48 | RAD ---
CT of the chest without contrast, 12/21/2017: HISTORY: Congestive heart failure, COPD Noncontrast scans were obtained as requested. There is mild calcific plaquing of the thoracic aorta without evidence of aneurysm. A few scattered coronary artery calcifications are present. There is mild generalized cardiomegaly. No mediastinal adenopathy is seen. There is a small right pleural effusion. There is mild associated atelectasis posteriorly in the right lower lobe. Mild scarring is present in the inferior lingular region on the left. There is mild pleural thickening laterally in the left base, probably due to scarring. No pulmonary mass or consolidation is seen. No interlobular septal thickening is evident. No significant left-sided pleural fluid is present. There is moderate bilateral renal cortical scarring. Moderate multilevel degenerative change is present in the spine. IMPRESSION: 1. Cardiomegaly with scattered coronary artery calcifications. 2. Small right pleural effusion with mild associated right lower lobe atelectasis. 3. Mild left basilar pleural/parenchymal scarring. PQRS Compliance Statement: One or more of the following individualized dose reduction techniques were utilized for this examination: 1. Automated exposure control 2. Adjustment of the mA and/or kV according to patient size 3. Use of iterative reconstruction technique Electronically signed by: Danny Coronado MD (12/21/2017 4:46 PM) [facility]
[2017-12-21] MEDS ORDERED: INSULIN LISPRO 300 UNITS/3 ML INSULN.PEN. SQ SCH (17:00)
[2017-12-21] MEDS ORDERED: NAPROXEN 250 MG TABLET PO PRN (17:00)
[2017-12-21] MEDS: metFORMIN 500 MG TABLET PO SCH (17:31)
[2017-12-21] MEDS ORDERED: PIP/TAZO PER PHARMACY MC PRN (19:00)
[2017-12-21 19:25] VITALS: BP 122/75
[2017-12-21] MEDS ORDERED: NON FORMULARY ITEM (Ranitidine Hcl 150 MG) PO SCH (21:00)
[2017-12-21] MEDS: PIPERACILLIN/TAZOBACTAM 3.375 GM in IV NORMAL SALINE 50ML 50 ML IV SCH (22:16)
[2017-12-21] MEDS: LISINOPRIL 20 MG TABLET PO SCH (22:18)
[2017-12-21] MEDS: ALLOPURINOL 300 MG TABLET. PO SCH (22:19)
[2017-12-21] MEDS: ASPIRIN ENTERIC COATED 81 MG TABLET.DR. PO SCH (22:20)
[2017-12-21] MEDS: MAGNESIUM OXIDE 400 MG TABLET PO SCH (22:20)
[2017-12-21] MEDS: SIMVASTATIN 40 MG TABLET. PO SCH (22:20)
[2017-12-21] MEDS: FLUoxetine HCL 20 MG CAPSULE PO SCH (22:20)
[2017-12-21] MEDS: FERROUS SULFATE 325 MG TABLET. PO SCH (22:22)
[2017-12-21] MEDS: DOXAZOSIN MESYLATE 4 MG TABLET. PO SCH (22:22)
[2017-12-21 23:25] VITALS: BP 111/51
[2017-12-22] MEDS: PIPERACILLIN/TAZOBACTAM 3.375 GM in IV NORMAL SALINE 50ML 50 ML IV SCH ×4 (02:38→17:41)
[2017-12-22 03:25] VITALS: BP 108/51
[2017-12-22] MEDS: LEVOTHYROXINE 125 MCG TABLET PO SCH (06:46)
[2017-12-22 07:05] VITALS: BP 112/55
[2017-12-22] MEDS: INSULIN LISPRO 300 UNITS/3 ML INSULN.PEN. SQ SCH ×4 (07:30→21:00)
[2017-12-22] MEDS: PANTOPRAZOLE 40 MG TABLET.DR. PO SCH (08:33)
[2017-12-22 08:49] LABS: CALCIUM 8.8 mg/dL (8.5-10.1); GFR 57.1; MAGNESIUM 1.7 mg/dL (1.8-2.4); POTASSIUM 3.8 mmol/L (3.5-5.1)
[2017-12-22] MEDS: MUPIROCIN 2 % NASAL OINTMENT 22GM TUBE. TP SCH (08:52)
[2017-12-22] MEDS: POTASSIUM CHLORIDE 10 MEQ TABLET.ER. PO SCH (08:52)
[2017-12-22] MEDS: CETIRIZINE HCL 10 MG TABLET. PO SCH (08:52)
[2017-12-22] MEDS: metFORMIN 500 MG TABLET PO SCH ×2 (08:53→16:53)
[2017-12-22] MEDS: PIOGLITAZONE 15 MG TABLET. PO SCH (08:53)
[2017-12-22] MEDS ORDERED: hydroCHLOROthiazide 25 MG TABLET PO SCH (09:00)
[2017-12-22] MEDS ORDERED: FUROSEMIDE 40 MG/4 ML VIAL. IVP SCH (09:00)
[2017-12-22] MEDS ORDERED: METOPROLOL SUCC 24HR ER 50 MG TAB.ER.24H. PO SCH (09:00)
[2017-12-22] MEDS: LACTOBACILLUS RHAMNOSUS GG 1 CAPSULE. PO SCH ×2 (09:03→21:49)
[2017-12-22 10:23] VITALS: BP 104/49
[2017-12-22] MEDS ORDERED: MAGNESIUM SULFATE 2GM 50 ML IV ONE (10:30)
--- NOTE | 2017-12-22 12:13 | CARD ---
MR#: [id number] Date of Study: 12/22/2017 Ordering Physician: BHARTI FIERRO, Referring Physician: JITENDRA BAIRD Tech: Jenniffer Davies RDCS APPROVED REPORT EXAM: Two-dimensional and M-mode echocardiogram with Doppler and color Doppler. Other Information Quality : Good INDICATION Congestive Heart Failure 2D DIMENSIONS RVDd3.0 (2.9-3.5cm)Left Atrium(2D)4.3 (1.6-4.0cm) IVSd1.0 (0.7-1.1cm)Aortic Root(2D)2.9 (2.0-3.7cm) LVDd6.2 (3.9-5.9cm)LVOT Diameter2.1 (1.8-2.4cm) PWd1.1 (0.7-1.1cm)LVDs4.0 (2.5-4.0cm) FS (%) 27.0 %SV124.0 ml LVEF(%)55.0 (>50%) Aortic Valve AoV Peak Edy.190.5cm/sAoV VTI41.4cm AO Peak GR.14.5mmHgLVOT Peak Edy.134.7cm/s AO Mean GR.8mmHgAVA (VMAX)2.48cm2 MINOO (VTI)2.70cm2 Mitral Valve MV E Mrzahnle800.7cm/sMV DECEL INLW790or MV A Hbdhebsc77.8cm/sE/A Ratio1.8 Tricuspid Valve TR P. Wuhfpnmy357nv/sRAP ARVMFISB6mcIj TR Peak Gr.[id number] Pulmonary Vein S1 Okhwynty64.2cm/sD2 Eoetnpfh45.9cm/s LEFT VENTRICLE The Left Ventricle is mildly dilated. There is normal left ventricular wall thickness. The left ventr icular systolic function is normal and the ejection fraction is within normal range. The Ejection Fra ction is 55%. There is normal LV segmental wall motion. Transmitral Doppler flow pattern is Grade II- pseudonormal filling dynamics. RIGHT VENTRICLE The right ventricle is normal size. The right ventricular systolic function is normal. ATRIA The left atrium is mildly dilated. The right atrium size is normal. The interatrial septum is intact with no evidence for an atrial septal defect or patent foramen ovale as noted on 2-D or Doppler imagi ng. AORTIC VALVE The aortic valve is calcified but opens well. Doppler and Color Flow revealed no significant aortic r egurgitation. There is no significant aortic valvular stenosis. MITRAL VALVE The mitral valve is calcified but opens well. Mitral annular calcification is mild. There is no evide nce of mitral valve prolapse. There is no mitral valve stenosis. Doppler and Color-flow revealed trac e mitral regurgitation. TRICUSPID VALVE The tricuspid valve is normal in structure and function. Doppler and Color Flow revealed mild tricusp id regurgitation. The PA pressure was estimated at 36 mmHg. There is no tricuspid valve stenosis. PULMONIC VALVE The pulmonic valve is not well visualized. Doppler and Color Flow revealed no pulmonic valvular regur gitation. There is no pulmonic valvular stenosis. GREAT VESSELS The aortic root is normal in size. The ascending aorta is not well seen. The IVC is normal in size an d collapses >50% with inspiration. PERICARDIAL EFFUSION There is no evidence of significant pericardial effusion. Critical Notification Critical Value: No <Conclusion> The left ventricular systolic function is normal and the ejection fraction is within normal range. Th e Ejection Fraction is 55%. There is normal LV segmental wall motion. Doppler and Color Flow revealed mild tricuspid regurgitation. The PA pressure was estimated at 36 mmH g. Signed by : Cruz Fenton, Electronically Approved : 12/22/2017 12:13:30
--- NOTE | 2017-12-22 13:37 | PDOC ---
CARDIO Progress Notes Date and Time Date of Service 12/22/2017 Time of Evaluation 1330 Subjective Subjective: No Chest Pain, No shortness of breath, No Palpitations, Other ( feels better today) Vitals Vitals Vital Signs Date Time Temp Pulse Resp B/P (MAP) Pulse Ox O2 Delivery O2 Flow Rate FiO2 12/22/17 10:23 98.4 56 18 104/49 (67) 98 Room Air 98.4 Weight Weight [ ] Input and Output Intake and Output Intake and Output 12/22/17 07:00 Intake Total 1100 ml Output Total 2200 ml Balance -1100 ml Intake Oral 1100 ml Output Urine Total 2200 ml Laboratory Labs Laboratory Tests Test 12/21/17 15:15 12/21/17 16:46 12/21/17 20:43 12/22/17 07:52 Nasal Screen MRSA (PCR) Positive (Negative) Glucose (Fingerstick) 103 mg/dL (70-99) 104 mg/dL (70-99) 114 mg/dL (70-99) Test 12/22/17 08:25 12/22/17 11:02 Sodium Level 127 mmol/L (136-145) Potassium Level 3.8 mmol/L (3.5-5.1) Chloride Level 88 mmol/L (98-107) Carbon Dioxide Level 31 mmol/L (21-32) Anion Gap 8 (6-14) Blood Urea Nitrogen 13 mg/dL (7-20) Creatinine 1.0 mg/dL (0.6-1.0) Estimated GFR (Cockcroft-Gault) 57.1 Glucose Level 113 mg/dL (70-99) Calcium Level 8.8 mg/dL (8.5-10.1) Magnesium Level 1.7 mg/dL (1.8-2.4) Glucose (Fingerstick) 162 mg/dL (70-99) Physical Exam HEENT: Neck Supple W Full Motion Chest: Symmetric LUNGS: Other (diminished basilar crackles) Heart: S1S2, RRR (Sr no ectopies) Abdomen: Soft N/T Extremities: No Calf Tenderness, Other (1+ bilateral LE pitting edema) Neurology: alert, oriented, follow commands Assessment Assessment 1. Acute bronchitis/URI 2. Acute diastolic CHF: induced by 3-4L of daily H20 ingestion, KAYLAH/obesity and bronchitis. Much better. 3. HTN: controlled.at low end. EF and WM nml. PAP 36 mmHg 4. Hx of depression: on prozac 5. Hyponatremia/polydipsia: multifactorial with meds as above. per PCP 6. Morbid obesity: BMI 57 7. DM2 8. HLP 9. Polypharmacy 10. Asymptomatic SB: episodes of HR 40-50s. Recommendations 1. Continue with lasix therapy. DC HCTZ. replace Mg, Decrease toprol 2. Unable to utilize CPAP currently due to nasal congestion. May utilize O2 NC at hs. 3. Continue with secondary prevention measures. 4. PCXR, BMP and Mg in am. Wt loss. and decrease fluid consumption emphasized. anticipate DC tomorrow. BHARTI FIERRO APRN Dec 22, 2017 13:36
--- NOTE | 2017-12-22 14:36 | PDOC ---
PROGRESS NOTES Chief Complaint Chief Complaint Acute bronchitis/URI Acute diastolic CHF Hyponatremia/polydipsia H/o HTN H/o DM2 H/o anemia History of Present Illness History of Present Illness Pt seen and examined while laying in bed. Pt appears comfortable. RAJINDER RN Pt reports improved cough and SOB. Vitals Vitals Vital Signs Date Time Temp Pulse Resp B/P (MAP) Pulse Ox O2 Delivery O2 Flow Rate FiO2 12/22/17 10:23 98.4 56 18 104/49 (67) 98 Room Air 98.4 Physical Exam General: Alert, Oriented X3, Cooperative, No acute distress Heart: Regular rate, Other (distant heart sounds) Lungs: Clear Abdomen: Soft, No tenderness Extremities: No cyanosis Skin: Other (healed right otto wound. venous dermatitis with dry skin to LE, guttate hypopigmentation on b/l forearms) Labs LABS Laboratory Tests Test 12/21/17 15:15 12/21/17 16:46 12/21/17 20:43 12/22/17 07:52 Nasal Screen MRSA (PCR) Positive (Negative) Glucose (Fingerstick) 103 mg/dL (70-99) 104 mg/dL (70-99) 114 mg/dL (70-99) Test 12/22/17 08:25 12/22/17 11:02 Sodium Level 127 mmol/L (136-145) Potassium Level 3.8 mmol/L (3.5-5.1) Chloride Level 88 mmol/L (98-107) Carbon Dioxide Level 31 mmol/L (21-32) Anion Gap 8 (6-14) Blood Urea Nitrogen 13 mg/dL (7-20) Creatinine 1.0 mg/dL (0.6-1.0) Estimated GFR (Cockcroft-Gault) 57.1 Glucose Level 113 mg/dL (70-99) Calcium Level 8.8 mg/dL (8.5-10.1) Magnesium Level 1.7 mg/dL (1.8-2.4) Glucose (Fingerstick) 162 mg/dL (70-99) Review of Systems Review of Systems Pt denies fevers, CP, and cough. Pt admits to increased bruising. Assessment and Plan Assessmemt and Plan Problems Medical Problems: (1) CHF (congestive heart failure) Status: Acute (2) Cough Status: Acute (3) Hyponatremia Status: Acute Assessment: Acute bronchitis/URI Acute diastolic CHF Hyponatremia/polydipsia H/o HTN H/o DM2 H/o anemia Plan: Cardiac monitoring Cont Abx Cont diuresis with lasix Cont IV NS PT/OT Home meds DVT ppx Comment Review of Relevant I have reviewed the following items teressa (where applicable) has been applied. Labs Laboratory Tests Test 12/21/17 11:20 12/21/17 12:15 12/21/17 15:15 12/21/17 16:46 Urine Collection Type Unknown Urine Color Yellow Urine Clarity Clear Urine pH 7.0 Urine Specific [place] 1.020 Urine Protein Negative mg/dL (NEG-TRACE) Urine Glucose (UA) Negative mg/dL (NEG) Urine Ketones (Stick) Negative mg/dL (NEG) Urine Blood Negative (NEG) Urine Nitrite Negative (NEG) Urine Bilirubin Negative (NEG) Urine Urobilinogen Dipstick 1.0 mg/dL (0.2 mg/dL) Urine Leukocyte Esterase Small (NEG) Urine RBC 0 /HPF (0-2) Urine WBC 1-4 /HPF (0-4) Urine Squamous Epithelial Cells Many /LPF Urine Bacteria Few /HPF (0-FEW) Urine Yeast Present /HPF White Blood Count 11.5 x10^3/uL (4.0-11.0) Red Blood Count 3.38 x10^6/uL (3.50-5.40) Hemoglobin 9.8 g/dL (12.0-15.5) Hematocrit 29.0 % (36.0-47.0) Mean Corpuscular Volume 86 fL (79-100) Mean Corpuscular Hemoglobin 29 pg (25-35) Mean Corpuscular Hemoglobin Concent 34 g/dL (31-37) Red Cell Distribution Width 17.6 % (11.5-14.5) Platelet Count 377 x10^3/uL (140-400) Neutrophils (%) (Auto) 86 % (31-73) Lymphocytes (%) (Auto) 7 % (24-48) Monocytes (%) (Auto) 7 % (0-9) Eosinophils (%) (Auto) 0 % (0-3) Basophils (%) (Auto) 1 % (0-3) Neutrophils # (Auto) 9.8 x10^3uL (1.8-7.7) Lymphocytes # (Auto) 0.8 x10^3/uL (1.0-4.8) Monocytes # (Auto) 0.8 x10^3/uL (0.0-1.1) Eosinophils # (Auto) 0.0 x10^3/uL (0.0-0.7) Basophils # (Auto) 0.1 x10^3/uL (0.0-0.2) Segmented Neutrophils % 76 % (35-66) Band Neutrophils % 5 % (0-9) Lymphocytes % 8 % (24-48) Monocytes % 11 % (0-10) Platelet Estimate Adequate (ADEQUATE) Large Platelets Few Giant Platelets Few Basophilic Stippling Present Anisocytosis Slight Ovalocytes Few Sodium Level 126 mmol/L (136-145) Potassium Level 4.6 mmol/L (3.5-5.1) Chloride Level 88 mmol/L (98-107) Carbon Dioxide Level 29 mmol/L (21-32) Anion Gap 9 (6-14) Blood Urea Nitrogen 17 mg/dL (7-20) Creatinine 1.0 mg/dL (0.6-1.0) Estimated GFR (Cockcroft-Gault) 57.1 BUN/Creatinine Ratio 17 (6-20) Glucose Level 106 mg/dL (70-99) Calcium Level 8.8 mg/dL (8.5-10.1) Total Bilirubin 0.8 mg/dL (0.2-1.0) Aspartate Amino Transf (AST/SGOT) 16 U/L (15-37) Alanine Aminotransferase (ALT/SGPT) 19 U/L (14-59) Alkaline Phosphatase 107 U/L (46-116) Creatine Kinase 35 U/L (26-192) Creatine Kinase MB (Mass) 0.7 ng/mL (0.0-3.6) Creatine Kinase MB Relative Index % (0-4) Troponin I Quantitative < 0.017 ng/mL (0.000-0.055) OD-Szb-M-Type Natriuretic Peptide 694 pg/mL (0-124) Total Protein 6.5 g/dL (6.4-8.2) Albumin 3.1 g/dL (3.4-5.0) Albumin/Globulin Ratio 0.9 (1.0-1.7) Triglycerides Level 67 mg/dL (0-150) Cholesterol Level 106 mg/dL (0-200) LDL Cholesterol, Calculated 49 mg/dL (0-100) VLDL Cholesterol, Calculated 13 mg/dL (0-40) Non-HDL Cholesterol Calculated 62 mg/dL (0-129) HDL Cholesterol 44 mg/dL (40-60) Cholesterol/HDL Ratio 2.4 Nasal Screen MRSA (PCR) Positive (Negative) Glucose (Fingerstick) 103 mg/dL (70-99) Test 12/21/17 20:43 12/22/17 07:52 12/22/17 08:25 12/22/17 11:02 Glucose (Fingerstick) 104 mg/dL (70-99) 114 mg/dL (70-99) 162 mg/dL (70-99) Sodium Level 127 mmol/L (136-145) Potassium Level 3.8 mmol/L (3.5-5.1) Chloride Level 88 mmol/L (98-107) Carbon Dioxide Level 31 mmol/L (21-32) Anion Gap 8 (6-14) Blood Urea Nitrogen 13 mg/dL (7-20) Creatinine 1.0 mg/dL (0.6-1.0) Estimated GFR (Cockcroft-Gault) 57.1 Glucose Level 113 mg/dL (70-99) Calcium Level 8.8 mg/dL (8.5-10.1) Magnesium Level 1.7 mg/dL (1.8-2.4) Laboratory Tests Test 12/21/17 15:15 12/21/17 16:46 12/21/17 20:43 12/22/17 07:52 Nasal Screen MRSA (PCR) Positive (Negative) Glucose (Fingerstick) 103 mg/dL (70-99) 104 mg/dL (70-99) 114 mg/dL (70-99) Test 12/22/17 08:25 12/22/17 11:02 Sodium Level 127 mmol/L (136-145) Potassium Level 3.8 mmol/L (3.5-5.1) Chloride Level 88 mmol/L (98-107) Carbon Dioxide Level 31 mmol/L (21-32) Anion Gap 8 (6-14) Blood Urea Nitrogen 13 mg/dL (7-20) Creatinine 1.0 mg/dL (0.6-1.0) Estimated GFR (Cockcroft-Gault) 57.1 Glucose Level 113 mg/dL (70-99) Calcium Level 8.8 mg/dL (8.5-10.1) Magnesium Level 1.7 mg/dL (1.8-2.4) Glucose (Fingerstick) 162 mg/dL (70-99) Medications Current Medications Albuterol/ Ipratropium (Duoneb) 3 ml 1X ONCE NEB ; Start 12/21/17 at 11:30; Stop 12/21/17 at 11:31; Status DC Furosemide (Lasix) 40 mg 1X ONCE IVP ; Start 12/21/17 at 14:15; Stop at 14:16; Status DC Insulin Human Lispro (HumaLOG) 0-7 UNITS TIDWMEALS SQ ; Start 12/21/17 at 17:00 ; Stop 12/22/17 at 01:05; Status DC Dextrose (Dextrose 50%-Water Syringe) 12.5 gm PRN Q15MIN PRN IV SEE COMMENTS; Start 12/21/17 at 15:30 Allopurinol (Zyloprim) 300 mg QHS PO Last administered on 12/21/17at 22:19; Start 12/21/17 at 21:00 Aspirin (Ecotrin) 81 mg QHS PO Last administered on 12/21/17at 22:20; Start at 21:00 Doxazosin Mesylate (Cardura) 2 mg HS PO Last administered on 12/21/17at 22:22; Start 12/21/17 at 21:00 Lisinopril (Prinivil) 20 mg QHS PO Last administered on 12/21/17at 22:18; Start 12/21/17 at 21:00 Ferrous Sulfate (Feosol) 650 mg QHS PO Last administered on 12/21/17at 22:22; Start 12/21/17 at 21:00 Fluoxetine HCl (PROzac) 40 mg QHS PO Last administered on 12/21/17at 22:20; Start 12/21/17 at 21:00 Hydrochlorothiazide (Hydrodiuril) 50 mg DAILY PO ; Start 12/22/17 at 09:00; Stop 12/22/17 at 14:05; Status DC Levothyroxine Sodium (Synthroid) 125 mcg DAILY06 PO Last administered on at 06:46; Start 12/22/17 at 06:00 Cetirizine HCl (ZyrTEC) 10 mg DAILY PO Last administered on 12/22/17 08:52; Start 12/22/17 at 09:00 Magnesium Oxide (Magnesium Oxide) 200 mg QHS PO Last administered on at 22:20; Start 12/21/17 at 21:00 Metformin HCl (Glucophage) 1,000 mg BIDWMEALS PO Last administered on at 08:53; Start 12/21/17 at 17:00 Metoprolol Succinate (Toprol Xl) 150 mg DAILY PO Last administered on 08:54; Start 12/22/17 at 09:00; Stop 12/22/17 at 14:05; Status DC Naproxen (Naprosyn) 250 mg PRN DAILY PRN PO INFLAMMATION; Start 12/21/17 at 17 :00 Pantoprazole Sodium (Protonix) 40 mg DAILYAC PO Last administered on at 08:33; Start 12/22/17 at 07:30 Pioglitazone HCl (Actos) 45 mg DAILY PO Last administered on 12/22/17 08:53; Start 12/22/17 at 09:00 Non-Formulary Medication (Ranitidine Hcl ) 150 mg BID PO ; Start 12/21/17 at 21 :00; Status UNV Simvastatin (Zocor) 40 mg QHS PO Last administered on 12/21/17at 22:20; Start 12/21/17 at 21:00 Mupirocin (Bactroban) 22 luc DAILY TP Last administered on 12/22/17at 08:52; Start 12/21/17 at 16:15 Piperacillin Sod/ Tazobactam Sod (Zosyn Per Pharmacy) 1 each PRN DAILY PRN MC SEE COMMENTS; Start 12/21/17 at 19:00 Furosemide (Lasix) 40 mg BID92 IVP Last administered on 12/22/17at 08:55; Start 12/22/17 at 09:00; Stop 12/22/17 at 14:05; Status DC Potassium Chloride (Klor-Con) 10 meq [id number] PO Last administered on at 08:52; Start 12/22/17 at 08:00 Enoxaparin Sodium (Lovenox 60mg Syringe) 60 mg Q12HR SQ Last administered on at 08:54; Start 12/21/17 at 21:00 Piperacillin Sod/ Tazobactam Sod 3.375 gm/Sodium Chloride 50 ml @ 100 mls/hr Q6HRS IV Last administered on 12/22/17at 12:11; Start 12/21/17 at 20:00 Insulin Human Lispro (HumaLOG) 0-7 UNITS QIDACHS SQ ; Start 12/22/17 at 07:30 Lactobacillus Rhamnosus (Culturelle) 1 cap BID PO Last administered on at 09:03; Start 12/22/17 at 09:00 Magnesium Sulfate 50 ml @ 25 mls/hr 1X ONCE IV Last administered on at 11:04; Start 12/22/17 at 10:30; Stop 12/22/17 at 12:29; Status DC Multivitamins (Thera M Plus) 1 tab DAILY PO ; Start 12/22/17 at 14:30 Ascorbic Acid (Vitamin C) 500 mg DAILY PO ; Start 12/22/17 at 14:30 Furosemide (Lasix) 40 mg DAILY IVP ; Start 12/23/17 at 09:00 Metoprolol Succinate (Toprol Xl) 100 mg DAILY PO ; Start 12/23/17 at 09:00 Active Scripts Active Reported Synthroid (Levothyroxine Sodium) 125 Mcg Tablet 1 Tab PO DAILY Lisinopril 20 Mg Tablet 1 Tab PO DAILY Ranitidine Hcl 150 Mg Capsule 150 Mg PO BID Aleve (Naproxen Sodium) 220 Mg Tablet 220 Mg PO PRN DAILY Mupirocin Ointment (Mupirocin) 22 Gm Oint...g. 22 Gm TP PRN DAILY Fluoxetine Hcl 40 Mg Capsule 40 Mg PO DAILY Aspir 81 (Aspirin) 81 Mg Tablet.dr 81 Mg PO DAILY Allopurinol 300 Mg Tablet 300 Mg PO DAILY Ferrous Sulfate 325 Mg Tablet.dr 650 Mg PO DAILY Claritin (Loratadine) 10 Mg Capsule 10 Mg PO DAILY Hydrochlorothiazide Tablet (Hydrochlorothiazide) 50 Mg Tablet 50 Mg PO DAILY Actos (Pioglitazone Hcl) 45 Mg Tablet 45 Mg PO DAILY Toprol Xl (Metoprolol Succinate) 50 Mg Tab.er.24h 150 Mg PO DAILY Doxazosin Mesylate 4 Mg Tablet 2 Mg PO HS Metformin Hcl 1,000 Mg Tablet 1,000 Mg PO BID Simvastatin 40 Mg Tablet 40 Mg PO DAILY Omeprazole 40 Mg Capsule.dr 40 Mg PO DAILY Co Q-10 (Ubidecarenone) 100 Mg Capsule 100 Mg PO Cinnamon (Cinnamon Bark) 500 Mg Capsule 500 Mg PO DAILY Lutein-Zeaxanthin 25-5 Mg Sfgl (Lutein/Zeaxanthin) 1 Each Capsule 1 Each PO DAILY Magnesium 250 Mg Tablet 250 Mg PO DAILY Vitals/I & O Vital Sign - Last 24 Hours 12/21/17 12/21/17 12/21/17 12/21/17 15:00 15:30 19:25 20:00 Temp 98.1 97.5 98.1 97.5 Pulse 61 59 Resp 20 B/P (MAP) 135/61 (85) 122/75 (91) Pulse Ox 97 99 O2 Delivery Room Air Room Air Room Air Room Air 12/21/17 12/21/17 12/21/17 12/22/17 22:18 22:22 23:25 03:25 Temp 97.8 98.0 97.8 98.0 Pulse 60 59 59 57 Resp 18 16 B/P (MAP) 122/75 122/75 111/51 (71) 108/51 (70) Pulse Ox 98 98 O2 Delivery Room Air Room Air 12/22/17 12/22/17 12/22/17 07:05 08:54 10:23 Temp 97.6 98.4 97.6 98.4 Pulse 58 61 56 Resp 18 18 B/P (MAP) 112/55 (74) 112/55 104/49 (67) Pulse Ox 98 98 O2 Delivery Room Air Room Air Intake and Output 12/21/17 12/21/17 12/22/17 15:00 23:00 07:00 Intake Total 200 ml 900 ml Output Total 700 ml 1500 ml Balance -500 ml -600 ml KEVAN ADAMS III DO Dec 22, 2017 14:36
[2017-12-22 14:58] VITALS: BP 92/44
[2017-12-22] MEDS: ASCORBIC ACID 500 MG TABLET PO SCH (16:53)
[2017-12-22] MEDS: MULTIVITAMIN with MINERAL TABLET. PO SCH (16:54)
[2017-12-22 19:20] VITALS: BP 97/48
[2017-12-22] MEDS: LISINOPRIL 20 MG TABLET PO SCH (21:00)
[2017-12-22] MEDS: DOXAZOSIN MESYLATE 4 MG TABLET. PO SCH (21:00)
[2017-12-22] MEDS: FERROUS SULFATE 325 MG TABLET. PO SCH (21:48)
[2017-12-22] MEDS: FLUoxetine HCL 20 MG CAPSULE PO SCH (21:48)
[2017-12-22] MEDS: ALLOPURINOL 300 MG TABLET. PO SCH (21:49)
[2017-12-22] MEDS: MAGNESIUM OXIDE 400 MG TABLET PO SCH (21:49)
[2017-12-22] MEDS: ASPIRIN ENTERIC COATED 81 MG TABLET.DR. PO SCH (21:49)
[2017-12-22] MEDS: SIMVASTATIN 40 MG TABLET. PO SCH (21:49)
[2017-12-22 23:03] VITALS: BP 107/51
[2017-12-23] MEDS: PIPERACILLIN/TAZOBACTAM 3.375 GM in IV NORMAL SALINE 50ML 50 ML IV SCH ×5 (00:33→23:59)
[2017-12-23 03:21] VITALS: BP 122/58
[2017-12-23] MEDS: LEVOTHYROXINE 125 MCG TABLET PO SCH (06:18)
[2017-12-23 06:49] LABS: CALCIUM 8.8 mg/dL (8.5-10.1); CREATININE 1.2 mg/dL (0.6-1.0); GFR 46.3; MAGNESIUM 1.9 mg/dL (1.8-2.4); POTASSIUM 3.3 mmol/L (3.5-5.1)
[2017-12-23 07:00] VITALS: BP 122/49
[2017-12-23] MEDS: INSULIN LISPRO 300 UNITS/3 ML INSULN.PEN. SQ SCH ×4 (07:30→20:44)
[2017-12-23] MEDS: POTASSIUM CHLORIDE 10 MEQ TABLET.ER. PO SCH (08:00)
[2017-12-23] MEDS: PANTOPRAZOLE 40 MG TABLET.DR. PO SCH (08:02)
[2017-12-23] MEDS ORDERED: METOPROLOL SUCC 24HR ER 100 MG TAB.ER.24H. PO SCH (09:00)
[2017-12-23] MEDS ORDERED: FUROSEMIDE 40 MG/4 ML VIAL. IVP SCH ×2 (09:00→10:30)
[2017-12-23] MEDS: LACTOBACILLUS RHAMNOSUS GG 1 CAPSULE. PO SCH ×2 (09:42→20:44)
[2017-12-23] MEDS: metFORMIN 500 MG TABLET PO SCH ×2 (09:42→18:14)
[2017-12-23] MEDS: CETIRIZINE HCL 10 MG TABLET. PO SCH (09:43)
[2017-12-23] MEDS: PIOGLITAZONE 15 MG TABLET. PO SCH (09:43)
[2017-12-23] MEDS: ASCORBIC ACID 500 MG TABLET PO SCH (09:43)
[2017-12-23] MEDS: MULTIVITAMIN with MINERAL TABLET. PO SCH (09:43)
--- NOTE | 2017-12-23 10:36 | RAD ---
Portable chest, 12/23/2017: HISTORY: Congestive heart failure Comparison is made to a study from 12/21/2017. The heart is mildly enlarged. The pulmonary vascularity is within normal limits. There is minimal linear atelectasis in the right base. The small right pleural effusion seen on the recent CT study is not visible radiographically. There is mild left basilar scarring. No new abnormality is detected. IMPRESSION: No significant change since 12/21/2017. Electronically signed by: Danny Coronado MD (12/23/2017 10:33 AM) [facility]
[2017-12-23 11:00] VITALS: BP 108/51
--- NOTE | 2017-12-23 11:29 | PDOC ---
CARDIO Progress Notes Date and Time Date of Service 12/23/2017 Time of Evaluation 1100 Subjective Subjective: No Chest Pain, No shortness of breath, No Palpitations, Other ( still has nasal congestion) Vitals Vitals Vital Signs Date Time Temp Pulse Resp B/P (MAP) Pulse Ox O2 Delivery O2 Flow Rate FiO2 12/23/17 09:46 62 122/49 12/23/17 07:00 97.8 18 98 Room Air 97.8 12/23/17 03:21 2.0 Weight Weight [ ] Input and Output Intake and Output Intake and Output 12/23/17 07:00 Intake Total 960 ml Output Total 3500 ml Balance -2540 ml Intake Oral 960 ml Output Urine Total 3500 ml Laboratory Labs Laboratory Tests Test 12/22/17 14:49 12/22/17 16:51 12/22/17 20:46 12/23/17 05:30 Glucose (Fingerstick) 112 mg/dL (70-99) 136 mg/dL (70-99) 128 mg/dL (70-99) Sodium Level 127 mmol/L (136-145) Potassium Level 3.3 mmol/L (3.5-5.1) Chloride Level 87 mmol/L (98-107) Carbon Dioxide Level 32 mmol/L (21-32) Anion Gap 8 (6-14) Blood Urea Nitrogen 23 mg/dL (7-20) Creatinine 1.2 mg/dL (0.6-1.0) Estimated GFR (Cockcroft-Gault) 46.3 Glucose Level 104 mg/dL (70-99) Calcium Level 8.8 mg/dL (8.5-10.1) Magnesium Level 1.9 mg/dL (1.8-2.4) Test 12/23/17 08:21 Glucose (Fingerstick) 102 mg/dL (70-99) Physical Exam HEENT: Neck Supple W Full Motion Chest: Symmetric LUNGS: Other (faint right basilar crackles) Heart: S1S2, RRR (SR no ectopies) Abdomen: Soft N/T Extremities: No Calf Tenderness, Other (trace LE edema) Neurology: alert, oriented, follow commands Assessment Assessment 1. Acute bronchitis/URI with persistent small right pleural effusion 2. Acute diastolic CHF: excellent UOP, clinically compensated 3. HTN: controlled. EF and WM nml. PAP 36 mmHg 4. Hx of depression: on prozac 5. Hyponatremia 6. Morbid obesity: BMI 57 7. DM2/HLP 9. Prerenal azotemia: significant diurese 10. Asymptomatic SB: remains to have episodes of HR 40-50s. Recommendations 1. Hold lasix therapy. Decrease toprol. DC HCTZ. replace K. Prozac likely contributing to persistent low Na but ACEi as well. May DC lisinopril temporarily and place on inorvasc at hs 2. Unable to utilize CPAP currently due to nasal congestion. May utilize O2 NC at hs. 3. Continue with secondary prevention measures. 4. Consult pulmonary. BHARTI FIERRO APRN Dec 23, 2017 11:29
[2017-12-23] MEDS ORDERED: POTASSIUM CHLORIDE 20 MEQ TABLET.ER. PO ONE ×2 (11:30→12:00)
--- NOTE | 2017-12-23 11:49 | PDOC ---
PROGRESS NOTES Chief Complaint Chief Complaint Acute bronchitis/URI Acute diastolic CHF Hyponatremia/polydipsia Hypokalemia H/o HTN H/o DM2 H/o anemia History of Present Illness History of Present Illness Pt seen and examined while laying in bed with cousin at bedside Discussed w/RN Discussed w/cousin at bedside Vitals Vitals Vital Signs Date Time Temp Pulse Resp B/P (MAP) Pulse Ox O2 Delivery O2 Flow Rate FiO2 12/23/17 11:00 97.8 61 18 108/51 (70) 95 Room Air 97.8 12/23/17 03:21 2.0 Physical Exam General: Alert, Oriented X3, Cooperative, No acute distress Heart: Regular rate, Other (distant heart sounds) Lungs: Clear Abdomen: Soft, No tenderness Extremities: No cyanosis, Other (b/l LE edema) Skin: Other (healed right otto wound. venous dermatitis with dry skin to LE, guttate hypopigmentation on b/l forearms) Labs LABS Laboratory Tests Test 12/22/17 14:49 12/22/17 16:51 12/22/17 20:46 12/23/17 05:30 Glucose (Fingerstick) 112 mg/dL (70-99) 136 mg/dL (70-99) 128 mg/dL (70-99) Sodium Level 127 mmol/L (136-145) Potassium Level 3.3 mmol/L (3.5-5.1) Chloride Level 87 mmol/L (98-107) Carbon Dioxide Level 32 mmol/L (21-32) Anion Gap 8 (6-14) Blood Urea Nitrogen 23 mg/dL (7-20) Creatinine 1.2 mg/dL (0.6-1.0) Estimated GFR (Cockcroft-Gault) 46.3 Glucose Level 104 mg/dL (70-99) Calcium Level 8.8 mg/dL (8.5-10.1) Magnesium Level 1.9 mg/dL (1.8-2.4) Test 12/23/17 08:21 Glucose (Fingerstick) 102 mg/dL (70-99) Review of Systems Review of Systems C/o nasal and sinus congestion, cough, fatigue, mild persistent SOB Denies headache, dizziness Assessment and Plan Assessmemt and Plan Problems Medical Problems: (1) CHF (congestive heart failure) Status: Acute (2) Cough Status: Acute (3) Hyponatremia Status: Acute Assessment: Acute bronchitis/URI Acute diastolic CHF Hyponatremia/polydipsia Hypokalemia H/o HTN H/o DM2 H/o anemia Plan: Potassium replacement Consult nephrology re hyponatremia Follow recommendations from pulm following CXR read FOllow recommendations from cardio Labs Home meds DVT ppx PT/OT D/c upon okay from subspecialists Comment Review of Relevant I have reviewed the following items teressa (where applicable) has been applied. Labs Laboratory Tests Test 12/21/17 12:15 12/21/17 15:15 12/21/17 16:46 12/21/17 20:43 White Blood Count 11.5 x10^3/uL (4.0-11.0) Red Blood Count 3.38 x10^6/uL (3.50-5.40) Hemoglobin 9.8 g/dL (12.0-15.5) Hematocrit 29.0 % (36.0-47.0) Mean Corpuscular Volume 86 fL (79-100) Mean Corpuscular Hemoglobin 29 pg (25-35) Mean Corpuscular Hemoglobin Concent 34 g/dL (31-37) Red Cell Distribution Width 17.6 % (11.5-14.5) Platelet Count 377 x10^3/uL (140-400) Neutrophils (%) (Auto) 86 % (31-73) Lymphocytes (%) (Auto) 7 % (24-48) Monocytes (%) (Auto) 7 % (0-9) Eosinophils (%) (Auto) 0 % (0-3) Basophils (%) (Auto) 1 % (0-3) Neutrophils # (Auto) 9.8 x10^3uL (1.8-7.7) Lymphocytes # (Auto) 0.8 x10^3/uL (1.0-4.8) Monocytes # (Auto) 0.8 x10^3/uL (0.0-1.1) Eosinophils # (Auto) 0.0 x10^3/uL (0.0-0.7) Basophils # (Auto) 0.1 x10^3/uL (0.0-0.2) Segmented Neutrophils % 76 % (35-66) Band Neutrophils % 5 % (0-9) Lymphocytes % 8 % (24-48) Monocytes % 11 % (0-10) Platelet Estimate Adequate (ADEQUATE) Large Platelets Few Giant Platelets Few Basophilic Stippling Present Anisocytosis Slight Ovalocytes Few Sodium Level 126 mmol/L (136-145) Potassium Level 4.6 mmol/L (3.5-5.1) Chloride Level 88 mmol/L (98-107) Carbon Dioxide Level 29 mmol/L (21-32) Anion Gap 9 (6-14) Blood Urea Nitrogen 17 mg/dL (7-20) Creatinine 1.0 mg/dL (0.6-1.0) Estimated GFR (Cockcroft-Gault) 57.1 BUN/Creatinine Ratio 17 (6-20) Glucose Level 106 mg/dL (70-99) Calcium Level 8.8 mg/dL (8.5-10.1) Total Bilirubin 0.8 mg/dL (0.2-1.0) Aspartate Amino Transf (AST/SGOT) 16 U/L (15-37) Alanine Aminotransferase (ALT/SGPT) 19 U/L (14-59) Alkaline Phosphatase 107 U/L (46-116) Creatine Kinase 35 U/L (26-192) Creatine Kinase MB (Mass) 0.7 ng/mL (0.0-3.6) Creatine Kinase MB Relative Index % (0-4) Troponin I Quantitative < 0.017 ng/mL (0.000-0.055) [id number]-[id number]-A-Type Natriuretic Peptide 694 pg/mL (0-124) Total Protein 6.5 g/dL (6.4-8.2) Albumin 3.1 g/dL (3.4-5.0) Albumin/Globulin Ratio 0.9 (1.0-1.7) Triglycerides Level 67 mg/dL (0-150) Cholesterol Level 106 mg/dL (0-200) LDL Cholesterol, Calculated 49 mg/dL (0-100) VLDL Cholesterol, Calculated 13 mg/dL (0-40) Non-HDL Cholesterol Calculated 62 mg/dL (0-129) HDL Cholesterol 44 mg/dL (40-60) Cholesterol/HDL Ratio 2.4 Nasal Screen MRSA (PCR) Positive (Negative) Glucose (Fingerstick) 103 mg/dL (70-99) 104 mg/dL (70-99) Test 12/22/17 07:52 12/22/17 08:25 12/22/17 11:02 12/22/17 14:49 Glucose (Fingerstick) 114 mg/dL (70-99) 162 mg/dL (70-99) 112 mg/dL (70-99) Sodium Level 127 mmol/L (136-145) Potassium Level 3.8 mmol/L (3.5-5.1) Chloride Level 88 mmol/L (98-107) Carbon Dioxide Level 31 mmol/L (21-32) Anion Gap 8 (6-14) Blood Urea Nitrogen 13 mg/dL (7-20) Creatinine 1.0 mg/dL (0.6-1.0) Estimated GFR (Cockcroft-Gault) 57.1 Glucose Level 113 mg/dL (70-99) Calcium Level 8.8 mg/dL (8.5-10.1) Magnesium Level 1.7 mg/dL (1.8-2.4) Test 12/22/17 16:51 12/22/17 20:46 12/23/17 05:30 12/23/17 08:21 Glucose (Fingerstick) 136 mg/dL (70-99) 128 mg/dL (70-99) 102 mg/dL (70-99) Sodium Level 127 mmol/L (136-145) Potassium Level 3.3 mmol/L (3.5-5.1) Chloride Level 87 mmol/L (98-107) Carbon Dioxide Level 32 mmol/L (21-32) Anion Gap 8 (6-14) Blood Urea Nitrogen 23 mg/dL (7-20) Creatinine 1.2 mg/dL (0.6-1.0) Estimated GFR (Cockcroft-Gault) 46.3 Glucose Level 104 mg/dL (70-99) Calcium Level 8.8 mg/dL (8.5-10.1) Magnesium Level 1.9 mg/dL (1.8-2.4) Laboratory Tests Test 12/22/17 14:49 12/22/17 16:51 12/22/17 20:46 12/23/17 05:30 Glucose (Fingerstick) 112 mg/dL (70-99) 136 mg/dL (70-99) 128 mg/dL (70-99) Sodium Level 127 mmol/L (136-145) Potassium Level 3.3 mmol/L (3.5-5.1) Chloride Level 87 mmol/L (98-107) Carbon Dioxide Level 32 mmol/L (21-32) Anion Gap 8 (6-14) Blood Urea Nitrogen 23 mg/dL (7-20) Creatinine 1.2 mg/dL (0.6-1.0) Estimated GFR (Cockcroft-Gault) 46.3 Glucose Level 104 mg/dL (70-99) Calcium Level 8.8 mg/dL (8.5-10.1) Magnesium Level 1.9 mg/dL (1.8-2.4) Test 12/23/17 08:21 Glucose (Fingerstick) 102 mg/dL (70-99) Medications Current Medications Albuterol/ Ipratropium (Duoneb) 3 ml 1X ONCE NEB ; Start 12/21/17 at 11:30; Stop 12/21/17 at 11:31; Status DC Furosemide (Lasix) 40 mg 1X ONCE IVP ; Start 12/21/17 at 14:15; Stop at 14:16; Status DC Insulin Human Lispro (HumaLOG) 0-7 UNITS TIDWMEALS SQ ; Start 12/21/17 at 17:00 ; Stop 12/22/17 at 01:05; Status DC Dextrose (Dextrose 50%-Water Syringe) 12.5 gm PRN Q15MIN PRN IV SEE COMMENTS; Start 12/21/17 at 15:30 Allopurinol (Zyloprim) 300 mg QHS PO Last administered on 12/22/17at 21:49; Start 12/21/17 at 21:00 Aspirin (Ecotrin) 81 mg QHS PO Last administered on 12/22/17at 21:49; Start at 21:00 Doxazosin Mesylate (Cardura) 2 mg HS PO Last administered on 12/21/17at 22:22; Start 12/21/17 at 21:00 Lisinopril (Prinivil) 20 mg QHS PO Last administered on 12/21/17at 22:18; Start 12/21/17 at 21:00; Stop 12/23/17 at 11:30; Status DC Ferrous Sulfate (Feosol) 650 mg QHS PO Last administered on 12/22/17at 21:48; Start 12/21/17 at 21:00 Fluoxetine HCl (PROzac) 40 mg QHS PO Last administered on 12/22/17at 21:48; Start 12/21/17 at 21:00 Hydrochlorothiazide (Hydrodiuril) 50 mg DAILY PO ; Start 12/22/17 at 09:00; Stop 12/22/17 at 14:05; Status DC Levothyroxine Sodium (Synthroid) 125 mcg DAILY06 PO Last administered on at 06:18; Start 12/22/17 at 06:00 Cetirizine HCl (ZyrTEC) 10 mg DAILY PO Last administered on 12/23/17at 09:43; Start 12/22/17 at 09:00 Magnesium Oxide (Magnesium Oxide) 200 mg QHS PO Last administered on at 21:49; Start 12/21/17 at 21:00 Metformin HCl (Glucophage) 1,000 mg BIDWMEALS PO Last administered on at 09:42; Start 12/21/17 at 17:00 Metoprolol Succinate (Toprol Xl) 150 mg DAILY PO Last administered on at 08:54; Start 12/22/17 at 09:00; Stop 12/22/17 at 14:05; Status DC Naproxen (Naprosyn) 250 mg PRN DAILY PRN PO INFLAMMATION; Start 12/21/17 at 17 :00 Pantoprazole Sodium (Protonix) 40 mg DAILYAC PO Last administered on at 08:02; Start 12/22/17 at 07:30 Pioglitazone HCl (Actos) 45 mg DAILY PO Last administered on 12/23/17at 09:43; Start 12/22/17 at 09:00 Non-Formulary Medication (Ranitidine Hcl ) 150 mg BID PO ; Start 12/21/17 at 21 :00; Status UNV Simvastatin (Zocor) 40 mg QHS PO Last administered on 12/22/17at 21:49; Start 12/21/17 at 21:00; Stop 12/23/17 at 11:34; Status DC Mupirocin (Bactroban) 22 luc DAILY TP Last administered on 12/22/17at 08:52; Start 12/21/17 at 16:15 Piperacillin Sod/ Tazobactam Sod (Zosyn Per Pharmacy) 1 each PRN DAILY PRN MC SEE COMMENTS; Start 12/21/17 at 19:00 Furosemide (Lasix) 40 mg BID92 IVP Last administered on 12/22/17at 08:55; Start 12/22/17 at 09:00; Stop 12/22/17 at 14:05; Status DC Potassium Chloride (Klor-Con) 10 meq DAILYWBKFT PO Last administered on at 08:00; Start 12/22/17 at 08:00 Enoxaparin Sodium (Lovenox 60mg Syringe) 60 mg Q12HR SQ Last administered on at 09:44; Start 12/21/17 at 21:00 Piperacillin Sod/ Tazobactam Sod 3.375 gm/Sodium Chloride 50 ml @ 100 mls/hr Q6HRS IV Last administered on 12/23/17at 06:18; Start 12/21/17 at 20:00 Insulin Human Lispro (HumaLOG) 0-7 UNITS QIDACHS SQ ; Start 12/22/17 at 07:30 Lactobacillus Rhamnosus (Culturelle) 1 cap BID PO Last administered on at 09:42; Start 12/22/17 at 09:00 Magnesium Sulfate 50 ml @ 25 mls/hr 1X ONCE IV Last administered on at 11:04; Start 12/22/17 at 10:30; Stop 12/22/17 at 12:29; Status DC Multivitamins (Thera M Plus) 1 tab DAILY PO Last administered on 12/23/17at 09: 43; Start 12/22/17 at 14:30 Ascorbic Acid (Vitamin C) 500 mg DAILY PO Last administered on 12/23/17at 09:43 ; Start 12/22/17 at 14:30 Furosemide (Lasix) 40 mg DAILY IVP Last administered on 12/22/17at 16:54; Start 12/23/17 at 09:00; Stop 12/23/17 at 10:23; Status DC Metoprolol Succinate (Toprol Xl) 100 mg DAILY PO Last administered on at 09:46; Start 12/23/17 at 09:00; Stop 12/23/17 at 11:26; Status DC Furosemide (Lasix) 40 mg DAILY IVP ; Start 12/23/17 at 10:30; Stop 12/23/17 at 11:26; Status DC Metoprolol Succinate (Toprol Xl) 50 mg DAILY PO ; Start 12/23/17 at 12:00 Potassium Chloride (Klor-Con) 40 meq 1X ONCE PO ; Start 12/23/17 at 11:30; Stop 12/23/17 at 11:33; Status DC Amlodipine Besylate (Norvasc) 5 mg QHS PO ; Start 12/23/17 at 21:00 Atorvastatin Calcium (Lipitor) 20 mg QHS PO ; Start 12/23/17 at 21:00 Active Scripts Active Reported Synthroid (Levothyroxine Sodium) 125 Mcg Tablet 1 Tab PO DAILY Lisinopril 20 Mg Tablet 1 Tab PO DAILY Ranitidine Hcl 150 Mg Capsule 150 Mg PO BID Aleve (Naproxen Sodium) 220 Mg Tablet 220 Mg PO PRN DAILY Mupirocin Ointment (Mupirocin) 22 Gm Oint...g. 22 Gm TP PRN DAILY Fluoxetine Hcl 40 Mg Capsule 40 Mg PO DAILY Aspir 81 (Aspirin) 81 Mg Tablet.dr 81 Mg PO DAILY Allopurinol 300 Mg Tablet 300 Mg PO DAILY Ferrous Sulfate 325 Mg Tablet.dr 650 Mg PO DAILY Claritin (Loratadine) 10 Mg Capsule 10 Mg PO DAILY Hydrochlorothiazide Tablet (Hydrochlorothiazide) 50 Mg Tablet 50 Mg PO DAILY Actos (Pioglitazone Hcl) 45 Mg Tablet 45 Mg PO DAILY Toprol Xl (Metoprolol Succinate) 50 Mg Tab.er.24h 150 Mg PO DAILY Doxazosin Mesylate 4 Mg Tablet 2 Mg PO HS Metformin Hcl 1,000 Mg Tablet 1,000 Mg PO BID Simvastatin 40 Mg Tablet 40 Mg PO DAILY Omeprazole 40 Mg Capsule.dr 40 Mg PO DAILY Co Q-10 (Ubidecarenone) 100 Mg Capsule 100 Mg PO Cinnamon (Cinnamon Bark) 500 Mg Capsule 500 Mg PO DAILY Lutein-Zeaxanthin 25-5 Mg Sfgl (Lutein/Zeaxanthin) 1 Each Capsule 1 Each PO DAILY Magnesium 250 Mg Tablet 250 Mg PO DAILY Vitals/I & O Vital Sign - Last 24 Hours 12/22/17 12/22/17 12/22/17 12/22/17 14:58 19:20 20:00 21:00 Temp 97.6 97.8 97.6 97.8 Pulse 60 95 64 Resp 18 18 B/P (MAP) 92/44 (60) 97/48 (64) 97/53 Pulse Ox 98 100 O2 Delivery Room Air Nasal Cannula Room Air O2 Flow Rate 2.0 12/22/17 12/22/17 12/23/17 12/23/17 21:00 23:03 03:21 07:00 Temp 97.7 97.8 97.8 97.7 97.8 97.8 Pulse 61 64 62 Resp 19 18 18 B/P (MAP) 97/48 107/51 (69) 122/58 (79) 122/49 (73) Pulse Ox 95 100 98 O2 Delivery Room Air Nasal Cannula Room Air O2 Flow Rate 2.0 12/23/17 12/23/17 09:46 11:00 Temp 97.8 97.8 Pulse 62 61 Resp 18 B/P (MAP) 122/49 108/51 (70) Pulse Ox 95 O2 Delivery Room Air Intake and Output 12/22/17 12/22/17 12/23/17 15:00 23:00 07:00 Intake Total 360 ml 600 ml Output Total 2200 ml 1300 ml Balance -1840 ml -700 ml KEVAN ADAMS III DO Dec 23, 2017 11:49
[2017-12-23] MEDS: METOPROLOL SUCC 24HR ER 100 MG TAB.ER.24H. PO SCH (12:00)
[2017-12-23] MEDS: MUPIROCIN 2 % NASAL OINTMENT 22GM TUBE. TP SCH (12:13)
[2017-12-23 15:00] VITALS: BP 109/53
[2017-12-23] MEDS: FUROSEMIDE 40 MG TABLET. PO SCH (15:00)
[2017-12-23 19:54] VITALS: BP 130/53
[2017-12-23] MEDS: amLODIPine BESYLATE 5 MG TABLET PO SCH (20:43)
[2017-12-23] MEDS: FLUoxetine HCL 20 MG CAPSULE PO SCH (20:43)
[2017-12-23] MEDS: ATORVASTATIN CALCIUM 20 MG TABLET PO SCH (20:44)
[2017-12-23] MEDS: ASPIRIN ENTERIC COATED 81 MG TABLET.DR. PO SCH (20:44)
[2017-12-23] MEDS: ALLOPURINOL 300 MG TABLET. PO SCH (20:44)
[2017-12-23] MEDS: DOXAZOSIN MESYLATE 4 MG TABLET. PO SCH (20:44)
[2017-12-23] MEDS: MAGNESIUM OXIDE 400 MG TABLET PO SCH (20:44)
[2017-12-23] MEDS: FERROUS SULFATE 325 MG TABLET. PO SCH (20:44)
[2017-12-23 22:27] VITALS: BP 128/42
[2017-12-24 03:16] VITALS: BP 124/53
[2017-12-24] MEDS: LEVOTHYROXINE 125 MCG TABLET PO SCH (05:51)
[2017-12-24] MEDS: PIPERACILLIN/TAZOBACTAM 3.375 GM in IV NORMAL SALINE 50ML 50 ML IV SCH ×2 (05:52→12:07)
[2017-12-24 07:00] VITALS: BP 152/69
[2017-12-24] MEDS: INSULIN LISPRO 300 UNITS/3 ML INSULN.PEN. SQ SCH ×4 (07:30→21:00)
[2017-12-24] MEDS: POTASSIUM CHLORIDE 10 MEQ TABLET.ER. PO SCH (10:29)
[2017-12-24] MEDS: PANTOPRAZOLE 40 MG TABLET.DR. PO SCH (10:29)
[2017-12-24] MEDS: LACTOBACILLUS RHAMNOSUS GG 1 CAPSULE. PO SCH ×2 (10:30→21:18)
[2017-12-24] MEDS: MULTIVITAMIN with MINERAL TABLET. PO SCH (10:30)
[2017-12-24] MEDS: METOPROLOL SUCC 24HR ER 100 MG TAB.ER.24H. PO SCH (10:30)
[2017-12-24] MEDS: ASCORBIC ACID 500 MG TABLET PO SCH (10:30)
[2017-12-24] MEDS: CETIRIZINE HCL 10 MG TABLET. PO SCH (10:30)
[2017-12-24] MEDS: metFORMIN 500 MG TABLET PO SCH ×2 (10:30→18:04)
[2017-12-24] MEDS: PIOGLITAZONE 15 MG TABLET. PO SCH (10:31)
[2017-12-24] MEDS: MUPIROCIN 2 % NASAL OINTMENT 22GM TUBE. TP SCH (10:32)
[2017-12-24 11:00] VITALS: BP 151/65
--- NOTE | 2017-12-24 11:04 | PDOC2 ---
CONSULT Date of Consult Date of Consult DATE: 12/24/17 TIME: 10:59 Reason for Consult Reason for Consult: LOW NA Referring Physician Referring Physician: BRIE Identification/Chief Complaint Chief Complaint SOB AND COUGH Source Source: Chart review, Patient History of Present Illness Reason for Visit: THIS IS A 57 YR OLD WITH SOB AND COUGHING. SHE IS NOTED TO HAVE ACUTE DIASTOLIC CHF AND PROB BRONCHITIS. APPARENTLY THIRSTY AND HAS BEEN DRINKING LOTS OF WATER. PT IS ON SSRI FOR HER DEPRESSION AND HAS ALSO BEEN ON A THIAZIDE DIURETIC ALONG WITH HER LASIX. NA IS LOW AT 127. HX ALSO NOTABLE FOR HYPOTHYROIDISM. HAS LE EDEMA AND MORBID OBESITY WELL Past Medical History Cardiovascular: HTN, Hyperlipidemia, Other (chronic leg edema) Pulmonary: Other (KAYLAH) CENTRAL NERVOUS SYSTEM: Other (No pertinent history) GI: GERD, Hemorrhoids, Other (hiatal hernia) Heme/Onc: Anemia NOS Hepatobiliary: No pertinent hx Psych: Anxiety Musculoskeletal: low back pain (sacroilitis), Osteoarthritis, Other Rheumatologic: Gout Infectious disease: Other (MRSA) ENT: Sincusitis, Allergic Rhinitis Renal/: No pertinent hx Endocrine: Diabetes (2), Hypothyroidism Dermatology: Cellulitis, Other (venous dermatitis) Past Surgical History Past Surgical History: Arthroscopy (right knee), Hysterectomy, Other (back surgery) Family History Family History: Hypertension Social History Social History: Parent No (17 yrs quit 1993) ALCOHOL: none Drugs: None Lives: with Family Current Problem List Problem List Problems Medical Problems: (1) CHF (congestive heart failure) Status: Acute (2) Cough Status: Acute (3) Hyponatremia Status: Acute Current Medications Current Medications Current Medications Albuterol/ Ipratropium (Duoneb) 3 ml 1X ONCE NEB ; Start 12/21/17 at 11:30; Stop 12/21/17 at 11:31; Status DC Furosemide (Lasix) 40 mg 1X ONCE IVP ; Start 12/21/17 at 14:15; Stop at 14:16; Status DC Insulin Human Lispro (HumaLOG) 0-7 UNITS TIDWMEALS SQ ; Start 12/21/17 at 17:00 ; Stop 12/22/17 at 01:05; Status DC Dextrose (Dextrose 50%-Water Syringe) 12.5 gm PRN Q15MIN PRN IV SEE COMMENTS; Start 12/21/17 at 15:30 Allopurinol (Zyloprim) 300 mg QHS PO Last administered on 12/23/17 20:44; Start 12/21/17 at 21:00 Aspirin (Ecotrin) 81 mg QHS PO Last administered on 12/23/17 20:44; Start at 21:00 Doxazosin Mesylate (Cardura) 2 mg HS PO Last administered on 12/23/17at 20:44; Start 12/21/17 at 21:00 Lisinopril (Prinivil) 20 mg QHS PO Last administered on 12/21/17at 22:18; Start 12/21/17 at 21:00; Stop 12/23/17 at 11:30; Status DC Ferrous Sulfate (Feosol) 650 mg QHS PO Last administered on 12/23/17 20:44; Start 12/21/17 at 21:00 Fluoxetine HCl (PROzac) 40 mg QHS PO Last administered on 12/23/17at 20:43; Start 12/21/17 at 21:00 Hydrochlorothiazide (Hydrodiuril) 50 mg DAILY PO ; Start 12/22/17 at 09:00; Stop 12/22/17 at 14:05; Status DC Levothyroxine Sodium (Synthroid) 125 mcg DAILY06 PO Last administered on at 05:51; Start 12/22/17 at 06:00 Cetirizine HCl (ZyrTEC) 10 mg DAILY PO Last administered on 12/24/17at 10:30; Start 12/22/17 at 09:00 Magnesium Oxide (Magnesium Oxide) 200 mg QHS PO Last administered on at 20:44; Start 12/21/17 at 21:00 Metformin HCl (Glucophage) 1,000 mg BIDWMEALS PO Last administered on at 10:30; Start 12/21/17 at 17:00 Metoprolol Succinate (Toprol Xl) 150 mg DAILY PO Last administered on at 08:54; Start 12/22/17 at 09:00; Stop 12/22/17 at 14:05; Status DC Naproxen (Naprosyn) 250 mg PRN DAILY PRN PO INFLAMMATION; Start 12/21/17 at 17 :00 Pantoprazole Sodium (Protonix) 40 mg DAILYAC PO Last administered on at 10:29; Start 12/22/17 at 07:30 Pioglitazone HCl (Actos) 45 mg DAILY PO Last administered on 12/24/17at 10:31; Start 12/22/17 at 09:00 Non-Formulary Medication (Ranitidine Hcl ) 150 mg BID PO ; Start 12/21/17 at 21 :00; Status UNV Simvastatin (Zocor) 40 mg QHS PO Last administered on 12/22/17at 21:49; Start 12/21/17 at 21:00; Stop 12/23/17 at 11:34; Status DC Mupirocin (Bactroban) 22 luc DAILY TP Last administered on 12/24/17at 10:32; Start 12/21/17 at 16:15 Piperacillin Sod/ Tazobactam Sod (Zosyn Per Pharmacy) 1 each PRN DAILY PRN MC SEE COMMENTS; Start 12/21/17 at 19:00 Furosemide (Lasix) 40 mg BID92 IVP Last administered on 12/22/17at 08:55; Start 12/22/17 at 09:00; Stop 12/22/17 at 14:05; Status DC Potassium Chloride (Klor-Con) 10 meq DAILYWBKFT PO Last administered on at 10:29; Start 12/22/17 at 08:00 Enoxaparin Sodium (Lovenox 60mg Syringe) 60 mg Q12HR SQ Last administered on at 10:31; Start 12/21/17 at 21:00 Piperacillin Sod/ Tazobactam Sod 3.375 gm/Sodium Chloride 50 ml @ 100 mls/hr Q6HRS IV Last administered on 12/24/17at 05:52; Start 12/21/17 at 20:00 Insulin Human Lispro (HumaLOG) 0-7 UNITS QIDACHS SQ ; Start 12/22/17 at 07:30 Lactobacillus Rhamnosus (Culturelle) 1 cap BID PO Last administered on at 10:30; Start 12/22/17 at 09:00 Magnesium Sulfate 50 ml @ 25 mls/hr 1X ONCE IV Last administered on at 11:04; Start 12/22/17 at 10:30; Stop 12/22/17 at 12:29; Status DC Multivitamins (Thera M Plus) 1 tab DAILY PO Last administered on 12/24/17at 10: 30; Start 12/22/17 at 14:30 Ascorbic Acid (Vitamin C) 500 mg DAILY PO Last administered on 12/24/17at 10:30 ; Start 12/22/17 at 14:30 Furosemide (Lasix) 40 mg DAILY IVP Last administered on 12/22/17at 16:54; Start 12/23/17 at 09:00; Stop 12/23/17 at 10:23; Status DC Metoprolol Succinate (Toprol Xl) 100 mg DAILY PO Last administered on at 09:46; Start 12/23/17 at 09:00; Stop 12/23/17 at 11:26; Status DC Furosemide (Lasix) 40 mg DAILY IVP ; Start 12/23/17 at 10:30; Stop 12/23/17 at 11:26; Status DC Metoprolol Succinate (Toprol Xl) 50 mg DAILY PO Last administered on at 10:30; Start 12/23/17 at 12:00 Potassium Chloride (Klor-Con) 40 meq 1X ONCE PO Last administered on at 12:12; Start 12/23/17 at 11:30; Stop 12/23/17 at 11:33; Status DC Amlodipine Besylate (Norvasc) 5 mg QHS PO Last administered on 12/23/17at 20:43 ; Start 12/23/17 at 21:00 Atorvastatin Calcium (Lipitor) 20 mg QHS PO Last administered on 12/23/17at 20: 44; Start 12/23/17 at 21:00 Potassium Chloride (Klor-Con) 40 meq 1X ONCE PO ; Start 12/23/17 at 12:00; Stop 12/23/17 at 12:06; Status DC Furosemide (Lasix) 40 mg DAILY PO ; Start 12/23/17 at 15:00 Active Scripts Active Reported Synthroid (Levothyroxine Sodium) 125 Mcg Tablet 1 Tab PO DAILY Lisinopril 20 Mg Tablet 1 Tab PO DAILY Ranitidine Hcl 150 Mg Capsule 150 Mg PO BID Aleve (Naproxen Sodium) 220 Mg Tablet 220 Mg PO PRN DAILY Mupirocin Ointment (Mupirocin) 22 Gm Oint...g. 22 Gm TP PRN DAILY Fluoxetine Hcl 40 Mg Capsule 40 Mg PO DAILY Aspir 81 (Aspirin) 81 Mg Tablet.dr 81 Mg PO DAILY Allopurinol 300 Mg Tablet 300 Mg PO DAILY Ferrous Sulfate 325 Mg Tablet.dr 650 Mg PO DAILY Claritin (Loratadine) 10 Mg Capsule 10 Mg PO DAILY Hydrochlorothiazide Tablet (Hydrochlorothiazide) 50 Mg Tablet 50 Mg PO DAILY Actos (Pioglitazone Hcl) 45 Mg Tablet 45 Mg PO DAILY Toprol Xl (Metoprolol Succinate) 50 Mg Tab.er.24h 150 Mg PO DAILY Doxazosin Mesylate 4 Mg Tablet 2 Mg PO HS Metformin Hcl 1,000 Mg Tablet 1,000 Mg PO BID Simvastatin 40 Mg Tablet 40 Mg PO DAILY Omeprazole 40 Mg Capsule.dr 40 Mg PO DAILY Co Q-10 (Ubidecarenone) 100 Mg Capsule 100 Mg PO Cinnamon (Cinnamon Bark) 500 Mg Capsule 500 Mg PO DAILY Lutein-Zeaxanthin 25-5 Mg Sfgl (Lutein/Zeaxanthin) 1 Each Capsule 1 Each PO DAILY Magnesium 250 Mg Tablet 250 Mg PO DAILY Allergies Allergies: Coded Allergies: Sulfa (Sulfonamide Antibiotics) (Verified Allergy, Severe, ANAPHYLAXIS, ) latex (Verified Allergy, Intermediate, 03/29/14) TAPE PULLS SKIN OFF morphine (Verified Allergy, Intermediate, Itching, 03/29/14) I S O L A T I O N *CONTACT* (Verified Allergy, Unknown, 12/22/17) mrsa acetaminophen (Verified Adverse Reaction, Intermediate, FEELING OF HAVING A HEART ATTACK, 12/23/17) ROS General: YES: Fatigue, Malaise PSYCHOLOGICAL ROS: YES: Anxiety, Depression Eyes: Yes Decreased vision HEENT: YES: Heacaches Respiratory: YES: Cough, Orthopnea, Shortness of breath Cardiovascular: yes Edema Gastrointestinal: Yes Constipation Genitourinary: YES Other (NOCTURIA) Musculoskeletal: Yes Muscular Weakness Neurological: Yes Weakness Skin: Yes Dry Skin Physical Exam General: Alert, Oriented X3, Cooperative, No acute distress, moderate distress HEENT: Atraumatic, PERRLA, EOMI, Mucous membr. moist/pink Lungs: Other (DECREASED AT BASES) Heart: Regular rate Abdomen: Normal bowel sounds, Soft, No tenderness Extremities: No clubbing, Other (2+ EDEMA) Skin: No significant lesion Neuro: Normal speech, Cranial nerves 3-12 NL Psych/Mental Status: Mental status NL, Mood NL MUSCULOSKELETAL: No deformity Vitals VITALS Vital Signs Date Time Temp Pulse Resp B/P (MAP) Pulse Ox O2 Delivery O2 Flow Rate FiO2 12/24/17 10:30 65 152/69 12/24/17 07:00 97.7 22 94 Room Air 97.7 12/24/17 03:16 2.0 Labs Labs Laboratory Tests Test 12/22/17 11:02 12/22/17 14:49 12/22/17 16:51 12/22/17 20:46 Glucose (Fingerstick) 162 mg/dL (70-99) 112 mg/dL (70-99) 136 mg/dL (70-99) 128 mg/dL (70-99) Test 12/23/17 05:30 12/23/17 08:21 12/23/17 12:07 12/23/17 17:54 Sodium Level 127 mmol/L (136-145) Potassium Level 3.3 mmol/L (3.5-5.1) Chloride Level 87 mmol/L (98-107) Carbon Dioxide Level 32 mmol/L (21-32) Anion Gap 8 (6-14) Blood Urea Nitrogen 23 mg/dL (7-20) Creatinine 1.2 mg/dL (0.6-1.0) Estimated GFR (Cockcroft-Gault) 46.3 Glucose Level 104 mg/dL (70-99) Calcium Level 8.8 mg/dL (8.5-10.1) Magnesium Level 1.9 mg/dL (1.8-2.4) Glucose (Fingerstick) 102 mg/dL (70-99) 111 mg/dL (70-99) 103 mg/dL (70-99) Test 12/23/17 20:40 12/24/17 07:33 Glucose (Fingerstick) 128 mg/dL (70-99) 107 mg/dL (70-99) Laboratory Tests Test 12/23/17 12:07 12/23/17 17:54 12/23/17 20:40 12/24/17 07:33 Glucose (Fingerstick) 111 mg/dL (70-99) 103 mg/dL (70-99) 128 mg/dL (70-99) 107 mg/dL (70-99) Assessment/Plan Assessment/Plan IMP HYPONATREMIA BRONCHITIS ACUTE DIASTOLIC CHF-HAS BEEN ON THIAZIDE OBESITY DM II HTN DEPRESSION-ON SSRI PLAN CONT WITH LASIX AVOID THIAZIDES FLUID RESTRICT ANTIBIOTICS CHECK TSH URINE AND S AMADEOO SONIA TORREZ MD Dec 24, 2017 11:04
--- NOTE | 2017-12-24 11:12 | PDOC ---
PROGRESS NOTES Chief Complaint Chief Complaint Bronchitis/URI - resolving Diastolic CHF Hyponatremia - labs pending Hypokalemia - labs pending H/o HTN H/o DM2 H/o anemia H/o hypothyroidism Obesity History of Present Illness History of Present Illness Pt seen and examined while resting in bed w/NAD noted Discussed w/RN Vitals Vitals Vital Signs Date Time Temp Pulse Resp B/P (MAP) Pulse Ox O2 Delivery O2 Flow Rate FiO2 12/24/17 10:30 65 152/69 12/24/17 07:00 97.7 22 94 Room Air 97.7 12/24/17 03:16 2.0 Physical Exam Physical Exam Neuro: Normal speech, Cranial nerves 3-12 NL Psych/Mental Status: Mental status NL, Mood NL MSK: No deformity General: Alert, Oriented X3, Cooperative, No acute distress Heart: Regular rate, No murmurs Lungs: Clear Abdomen: Normal bowel sounds, Soft Extremities: No cyanosis, Other (b/l LE edema) Skin: Other (healed right otto wound. venous dermatitis with dry skin to LE, guttate hypopigmentation on b/l forearms) Labs LABS Laboratory Tests Test 12/23/17 12:07 12/23/17 17:54 12/23/17 20:40 12/24/17 07:33 Glucose (Fingerstick) 111 mg/dL (70-99) 103 mg/dL (70-99) 128 mg/dL (70-99) 107 mg/dL (70-99) Review of Systems Review of Systems Pt was resting in bed during visit and appeared to be in NAD Pt awoke at end of exam and stated is feeling better overall but was still tired Assessment and Plan Assessmemt and Plan Problems Medical Problems: (1) CHF (congestive heart failure) Status: Acute (2) Cough Status: Acute (3) Hyponatremia Status: Acute Assessment: Bronchitis/URI - resolving Acute diastolic CHF Hyponatremia - labs pending Hypokalemia - labs pending H/o HTN H/o DM2 H/o anemia H/o hypothyroidism Obesity Plan: Labs pending Potential d/c today pending labs and okay from subspecialists F/u w/cardio as outpatient upon d/c Home meds PT/OT Comment Review of Relevant I have reviewed the following items teressa (where applicable) has been applied. Labs Laboratory Tests Test 12/22/17 14:49 12/22/17 16:51 12/22/17 20:46 12/23/17 05:30 Glucose (Fingerstick) 112 mg/dL (70-99) 136 mg/dL (70-99) 128 mg/dL (70-99) Sodium Level 127 mmol/L (136-145) Potassium Level 3.3 mmol/L (3.5-5.1) Chloride Level 87 mmol/L (98-107) Carbon Dioxide Level 32 mmol/L (21-32) Anion Gap 8 (6-14) Blood Urea Nitrogen 23 mg/dL (7-20) Creatinine 1.2 mg/dL (0.6-1.0) Estimated GFR (Cockcroft-Gault) 46.3 Glucose Level 104 mg/dL (70-99) Calcium Level 8.8 mg/dL (8.5-10.1) Magnesium Level 1.9 mg/dL (1.8-2.4) Test 12/23/17 08:21 12/23/17 12:07 12/23/17 17:54 12/23/17 20:40 Glucose (Fingerstick) 102 mg/dL (70-99) 111 mg/dL (70-99) 103 mg/dL (70-99) 128 mg/dL (70-99) Test 12/24/17 07:33 Glucose (Fingerstick) 107 mg/dL (70-99) Laboratory Tests Test 12/23/17 12:07 12/23/17 17:54 12/23/17 20:40 12/24/17 07:33 Glucose (Fingerstick) 111 mg/dL (70-99) 103 mg/dL (70-99) 128 mg/dL (70-99) 107 mg/dL (70-99) Medications Current Medications Albuterol/ Ipratropium (Duoneb) 3 ml 1X ONCE NEB ; Start 12/21/17 at 11:30; Stop 12/21/17 at 11:31; Status DC Furosemide (Lasix) 40 mg 1X ONCE IVP ; Start 12/21/17 at 14:15; Stop at 14:16; Status DC Insulin Human Lispro (HumaLOG) 0-7 UNITS TIDWMEALS SQ ; Start 12/21/17 at 17:00 ; Stop 12/22/17 at 01:05; Status DC Dextrose (Dextrose 50%-Water Syringe) 12.5 gm PRN Q15MIN PRN IV SEE COMMENTS; Start 12/21/17 at 15:30 Allopurinol (Zyloprim) 300 mg QHS PO Last administered on 12/23/17at 20:44; Start 12/21/17 at 21:00 Aspirin (Ecotrin) 81 mg QHS PO Last administered on 12/23/17 20:44; Start at 21:00 Doxazosin Mesylate (Cardura) 2 mg HS PO Last administered on 12/23/17 20:44; Start 12/21/17 at 21:00 Lisinopril (Prinivil) 20 mg QHS PO Last administered on 12/21/17at 22:18; Start 12/21/17 at 21:00; Stop 12/23/17 at 11:30; Status DC Ferrous Sulfate (Feosol) 650 mg QHS PO Last administered on 12/23/17 20:44; Start 12/21/17 at 21:00 Fluoxetine HCl (PROzac) 40 mg QHS PO Last administered on 12/23/17at 20:43; Start 12/21/17 at 21:00 Hydrochlorothiazide (Hydrodiuril) 50 mg DAILY PO ; Start 12/22/17 at 09:00; Stop 12/22/17 at 14:05; Status DC Levothyroxine Sodium (Synthroid) 125 mcg DAILY06 PO Last administered on at 05:51; Start 12/22/17 at 06:00 Cetirizine HCl (ZyrTEC) 10 mg DAILY PO Last administered on 12/24/17at 10:30; Start 12/22/17 at 09:00 Magnesium Oxide (Magnesium Oxide) 200 mg QHS PO Last administered on at 20:44; Start 12/21/17 at 21:00 Metformin HCl (Glucophage) 1,000 mg BIDWMEALS PO Last administered on at 10:30; Start 12/21/17 at 17:00 Metoprolol Succinate (Toprol Xl) 150 mg DAILY PO Last administered on at 08:54; Start 12/22/17 at 09:00; Stop 12/22/17 at 14:05; Status DC Naproxen (Naprosyn) 250 mg PRN DAILY PRN PO INFLAMMATION; Start 12/21/17 at 17 :00 Pantoprazole Sodium (Protonix) 40 mg DAILYAC PO Last administered on at 10:29; Start 12/22/17 at 07:30 Pioglitazone HCl (Actos) 45 mg DAILY PO Last administered on 12/24/17at 10:31; Start 12/22/17 at 09:00 Non-Formulary Medication (Ranitidine Hcl ) 150 mg BID PO ; Start 12/21/17 at 21 :00; Status UNV Simvastatin (Zocor) 40 mg QHS PO Last administered on 12/22/17at 21:49; Start 12/21/17 at 21:00; Stop 12/23/17 at 11:34; Status DC Mupirocin (Bactroban) 22 luc DAILY TP Last administered on 12/24/17at 10:32; Start 12/21/17 at 16:15 Piperacillin Sod/ Tazobactam Sod (Zosyn Per Pharmacy) 1 each PRN DAILY PRN MC SEE COMMENTS; Start 12/21/17 at 19:00 Furosemide (Lasix) 40 mg BID92 IVP Last administered on 12/22/17at 08:55; Start 12/22/17 at 09:00; Stop 12/22/17 at 14:05; Status DC Potassium Chloride (Klor-Con) 10 meq [id number] PO Last administered on at 10:29; Start 12/22/17 at 08:00 Enoxaparin Sodium (Lovenox 60mg Syringe) 60 mg Q12HR SQ Last administered on at 10:31; Start 12/21/17 at 21:00 Piperacillin Sod/ Tazobactam Sod 3.375 gm/Sodium Chloride 50 ml @ 100 mls/hr Q6HRS IV Last administered on 12/24/17at 05:52; Start 12/21/17 at 20:00 Insulin Human Lispro (HumaLOG) 0-7 UNITS QIDACHS SQ ; Start 12/22/17 at 07:30 Lactobacillus Rhamnosus (Culturelle) 1 cap BID PO Last administered on at 10:30; Start 12/22/17 at 09:00 Magnesium Sulfate 50 ml @ 25 mls/hr 1X ONCE IV Last administered on at 11:04; Start 12/22/17 at 10:30; Stop 12/22/17 at 12:29; Status DC Multivitamins (Thera M Plus) 1 tab DAILY PO Last administered on 12/24/17at 10: 30; Start 12/22/17 at 14:30 Ascorbic Acid (Vitamin C) 500 mg DAILY PO Last administered on 12/24/17at 10:30 ; Start 12/22/17 at 14:30 Furosemide (Lasix) 40 mg DAILY IVP Last administered on 12/22/17at 16:54; Start 12/23/17 at 09:00; Stop 12/23/17 at 10:23; Status DC Metoprolol Succinate (Toprol Xl) 100 mg DAILY PO Last administered on at 09:46; Start 12/23/17 at 09:00; Stop 12/23/17 at 11:26; Status DC Furosemide (Lasix) 40 mg DAILY IVP ; Start 12/23/17 at 10:30; Stop 12/23/17 at 11:26; Status DC Metoprolol Succinate (Toprol Xl) 50 mg DAILY PO Last administered on at 10:30; Start 12/23/17 at 12:00 Potassium Chloride (Klor-Con) 40 meq 1X ONCE PO Last administered on at 12:12; Start 12/23/17 at 11:30; Stop 12/23/17 at 11:33; Status DC Amlodipine Besylate (Norvasc) 5 mg QHS PO Last administered on 12/23/17at 20:43 ; Start 12/23/17 at 21:00 Atorvastatin Calcium (Lipitor) 20 mg QHS PO Last administered on 12/23/17at 20: 44; Start 12/23/17 at 21:00 Potassium Chloride (Klor-Con) 40 meq 1X ONCE PO ; Start 12/23/17 at 12:00; Stop 12/23/17 at 12:06; Status DC Furosemide (Lasix) 40 mg DAILY PO ; Start 12/23/17 at 15:00 Active Scripts Active Reported Synthroid (Levothyroxine Sodium) 125 Mcg Tablet 1 Tab PO DAILY Lisinopril 20 Mg Tablet 1 Tab PO DAILY Ranitidine Hcl 150 Mg Capsule 150 Mg PO BID Aleve (Naproxen Sodium) 220 Mg Tablet 220 Mg PO PRN DAILY Mupirocin Ointment (Mupirocin) 22 Gm Oint...g. 22 Gm TP PRN DAILY Fluoxetine Hcl 40 Mg Capsule 40 Mg PO DAILY Aspir 81 (Aspirin) 81 Mg Tablet.dr 81 Mg PO DAILY Allopurinol 300 Mg Tablet 300 Mg PO DAILY Ferrous Sulfate 325 Mg Tablet.dr 650 Mg PO DAILY Claritin (Loratadine) 10 Mg Capsule 10 Mg PO DAILY Hydrochlorothiazide Tablet (Hydrochlorothiazide) 50 Mg Tablet 50 Mg PO DAILY Actos (Pioglitazone Hcl) 45 Mg Tablet 45 Mg PO DAILY Toprol Xl (Metoprolol Succinate) 50 Mg Tab.er.24h 150 Mg PO DAILY Doxazosin Mesylate 4 Mg Tablet 2 Mg PO HS Metformin Hcl 1,000 Mg Tablet 1,000 Mg PO BID Simvastatin 40 Mg Tablet 40 Mg PO DAILY Omeprazole 40 Mg Capsule.dr 40 Mg PO DAILY Co Q-10 (Ubidecarenone) 100 Mg Capsule 100 Mg PO Cinnamon (Cinnamon Bark) 500 Mg Capsule 500 Mg PO DAILY Lutein-Zeaxanthin 25-5 Mg Sfgl (Lutein/Zeaxanthin) 1 Each Capsule 1 Each PO DAILY Magnesium 250 Mg Tablet 250 Mg PO DAILY Vitals/I & O Vital Sign - Last 24 Hours 12/23/17 12/23/17 12/23/17 12/23/17 12:00 15:00 19:54 20:00 Temp 97.8 98.5 97.8 98.5 Pulse 61 67 66 Resp 18 18 B/P (MAP) 108/51 109/53 (71) 130/53 (78) Pulse Ox 95 98 O2 Delivery Room Air Room Air Room Air 12/23/17 12/23/17 12/23/17 12/24/17 20:43 20:44 22:27 03:16 Temp 98.7 97.9 98.7 97.9 Pulse 66 66 62 66 Resp 16 16 B/P (MAP) 130/53 130/53 128/42 (70) 124/53 (76) Pulse Ox 97 98 O2 Delivery Room Air Nasal Cannula O2 Flow Rate 2.0 12/24/17 12/24/17 07:00 10:30 Temp 97.7 97.7 Pulse 65 65 Resp 22 B/P (MAP) 152/69 (96) 152/69 Pulse Ox 94 O2 Delivery Room Air Intake and Output 12/23/17 12/23/17 12/24/17 15:00 23:00 07:00 Intake Total 100 ml 250 ml Output Total 1150 ml 400 ml Balance -1150 ml 100 ml -150 ml KEVAN ADAMS III DO Dec 24, 2017 11:12
[2017-12-24 11:18] LABS: CALCIUM 9.2 mg/dL (8.5-10.1); GFR 57.1; POTASSIUM 4.3 mmol/L (3.5-5.1)
[2017-12-24] MEDS: FUROSEMIDE 40 MG TABLET. PO SCH (12:06)
--- NOTE | 2017-12-24 14:41 | PDOC ---
PULMONARY PROGRESS NOTES Vitals Vital Signs Date Time Temp Pulse Resp B/P (MAP) Pulse Ox O2 Delivery O2 Flow Rate FiO2 12/24/17 11:00 98.6 62 22 151/65 (93) 98 Room Air 98.6 12/24/17 03:16 2.0 Lungs: Clear Labs Laboratory Tests Test 12/22/17 14:49 12/22/17 16:51 12/22/17 20:46 12/23/17 05:30 Glucose (Fingerstick) 112 mg/dL (70-99) 136 mg/dL (70-99) 128 mg/dL (70-99) Sodium Level 127 mmol/L (136-145) Potassium Level 3.3 mmol/L (3.5-5.1) Chloride Level 87 mmol/L (98-107) Carbon Dioxide Level 32 mmol/L (21-32) Anion Gap 8 (6-14) Blood Urea Nitrogen 23 mg/dL (7-20) Creatinine 1.2 mg/dL (0.6-1.0) Estimated GFR (Cockcroft-Gault) 46.3 Glucose Level 104 mg/dL (70-99) Calcium Level 8.8 mg/dL (8.5-10.1) Magnesium Level 1.9 mg/dL (1.8-2.4) Test 12/23/17 08:21 12/23/17 12:07 12/23/17 17:54 12/23/17 20:40 Glucose (Fingerstick) 102 mg/dL (70-99) 111 mg/dL (70-99) 103 mg/dL (70-99) 128 mg/dL (70-99) Test 12/24/17 07:33 12/24/17 10:30 12/24/17 11:32 Glucose (Fingerstick) 107 mg/dL (70-99) 141 mg/dL (70-99) Sodium Level 131 mmol/L (136-145) Potassium Level 4.3 mmol/L (3.5-5.1) Chloride Level 92 mmol/L (98-107) Carbon Dioxide Level 34 mmol/L (21-32) Anion Gap 5 (6-14) Blood Urea Nitrogen 16 mg/dL (7-20) Creatinine 1.0 mg/dL (0.6-1.0) Estimated GFR (Cockcroft-Gault) 57.1 Glucose Level 145 mg/dL (70-99) Serum Osmolality 276 mOsm/Kg (279-304) Calcium Level 9.2 mg/dL (8.5-10.1) Laboratory Tests Test 12/23/17 17:54 12/23/17 20:40 12/24/17 07:33 12/24/17 10:30 Glucose (Fingerstick) 103 mg/dL (70-99) 128 mg/dL (70-99) 107 mg/dL (70-99) Sodium Level 131 mmol/L (136-145) Potassium Level 4.3 mmol/L (3.5-5.1) Chloride Level 92 mmol/L (98-107) Carbon Dioxide Level 34 mmol/L (21-32) Anion Gap 5 (6-14) Blood Urea Nitrogen 16 mg/dL (7-20) Creatinine 1.0 mg/dL (0.6-1.0) Estimated GFR (Cockcroft-Gault) 57.1 Glucose Level 145 mg/dL (70-99) Serum Osmolality 276 mOsm/Kg (279-304) Calcium Level 9.2 mg/dL (8.5-10.1) Test 12/24/17 11:32 Glucose (Fingerstick) 141 mg/dL (70-99) Medications Active Scripts Medications Dose Route/Sig Max Daily Dose Days Date Category Synthroid (Levothyroxine Sodium) 125 Mcg Tablet 1 Tab PO DAILY 12/21/17 Reported Lisinopril 20 Mg Tablet 1 Tab PO DAILY 11/16/13 Reported Ranitidine Hcl 150 Mg Capsule 150 Mg PO BID 05/24/13 Reported Aleve (Naproxen Sodium) 220 Mg Tablet 220 Mg PO PRN DAILY 05/24/13 Reported Mupirocin Ointment (Mupirocin) 22 Gm Oint...g. 22 Gm TP PRN DAILY 05/24/13 Reported Fluoxetine Hcl 40 Mg Capsule 40 Mg PO DAILY 05/24/13 Reported Aspir 81 (Aspirin) 81 Mg Tablet.dr 81 Mg PO DAILY 05/24/13 Reported Allopurinol 300 Mg Tablet 300 Mg PO DAILY 05/24/13 Reported Ferrous Sulfate 325 Mg Tablet.dr 650 Mg PO DAILY 05/24/13 Reported Claritin (Loratadine) 10 Mg Capsule 10 Mg PO DAILY 05/24/13 Reported Hydrochlorothiazide Tablet (Hydrochlorothiazide) 50 Mg Tablet 50 Mg PO DAILY 05/24/13 Reported Actos (Pioglitazone Hcl) 45 Mg Tablet 45 Mg PO DAILY 05/24/13 Reported Toprol Xl (Metoprolol Succinate) 50 Mg Tab.er.24h 150 Mg PO DAILY 05/24/13 Reported Doxazosin Mesylate 4 Mg Tablet 2 Mg PO HS 05/24/13 Reported Metformin Hcl 1,000 Mg Tablet 1,000 Mg PO BID 05/24/13 Reported Simvastatin 40 Mg Tablet 40 Mg PO DAILY 05/24/13 Reported Omeprazole 40 Mg Capsule.dr 40 Mg PO DAILY 05/24/13 Reported Co Q-10 (Ubidecarenone) 100 Mg Capsule 100 Mg PO 05/24/13 Reported Cinnamon (Cinnamon Bark) 500 Mg Capsule 500 Mg PO DAILY 05/24/13 Reported Lutein-Zeaxanthin 25-5 Mg Sfgl (Lutein/Zeaxanthin) 1 Each Capsule 1 Each PO DAILY 05/24/13 Reported Magnesium 250 Mg Tablet 250 Mg PO DAILY 05/24/13 Reported Impression . FULL CONSULT DICTATED PNEUMONIA WITH POSSIBLE EFFUSION CHANGE TO ORAL ANTIBX OK TO D/C FROM PULMONARY STANDPOINT REPEAT CT IN 2 MONTHS AND FOLLOE UP IN MY OFFICE THANKS NITO BARNETT MD Dec 24, 2017 14:41
[2017-12-24 15:20] VITALS: BP 168/75
[2017-12-24 19:43] VITALS: BP 135/58
[2017-12-24] MEDS: amLODIPine BESYLATE 5 MG TABLET PO SCH (21:15)
[2017-12-24] MEDS: AMOXICILLIN/K CLAV 875/125MG TABLET. PO SCH (21:16)
[2017-12-24] MEDS: MAGNESIUM OXIDE 400 MG TABLET PO SCH (21:17)
[2017-12-24] MEDS: FERROUS SULFATE 325 MG TABLET. PO SCH (21:17)
[2017-12-24] MEDS: ATORVASTATIN CALCIUM 20 MG TABLET PO SCH (21:18)
[2017-12-24] MEDS: FLUoxetine HCL 20 MG CAPSULE PO SCH (21:18)
[2017-12-24] MEDS: ASPIRIN ENTERIC COATED 81 MG TABLET.DR. PO SCH (21:18)
[2017-12-24] MEDS: DOXAZOSIN MESYLATE 4 MG TABLET. PO SCH (21:19)
[2017-12-24] MEDS: ALLOPURINOL 300 MG TABLET. PO SCH (21:20)
[2017-12-24 23:28] VITALS: BP 138/62
--- NOTE | 2017-12-25 00:01 | CONS ---
DATE OF CONSULTATION: 12/24/2017 ATTENDING PHYSICIAN: Dr. Castro. REASON FOR CONSULTATION: The patient seen in pulmonary consultation at the request of Dr. Chang for abnormal CT chest. HISTORY OF PRESENT ILLNESS: The patient is a 57-year-old with a history of [id number] history of smoking, quit in 1993, was treated by her primary care doctor, Dr. Ritesh Betancourt, as an outpatient for bronchitis and pneumonia. She presented with increasing shortness of breath, failed outpatient therapy. She presented with increasing shortness of breath 3-4 days, cough productive of discolored sputum. No hemoptysis, some subjective fever and possible night sweats. The patient was seen in consultation by cardiology. Workup included a CT of the chest. I reviewed the CT, there is evidence of cardiomegaly, small right-sided effusion with right lower lobe atelectasis. There is also left basal pleural parenchymal scarring. The patient does not see a toll line mechanic on a regular basis, has never been told that she has COPD, wears CPAP at home for obstructive sleep apnea, does not utilize oxygen at home. No regular metered dose inhalers and she does not experience acute exacerbations of COPD on a regular basis. PAST MEDICAL HISTORY: Morbid obesity, hypertension, hyperlipidemia, chronic pain lower back, surgery in the past. She is apparently disabled. As a result, she has a prior history of osteoarthritis, gout, MRSA infection, allergic rhinitis, diabetes, hypothyroidism. PAST SURGICAL HISTORY: As above. ALLERGIES: SULFA, ACETAMINOPHEN, LATEX AND MORPHINE. HOME MEDICATIONS: List was reviewed. REVIEW OF SYSTEMS: CONSTITUTIONAL: Subjective fever. EYES: No change in visual acuity. HEENT: Some nasal congestion, but no sore throat. PULMONARY: As indicated above. CARDIOVASCULAR: Some chest pain related to coughing. No anginal type of discomfort. GASTROINTESTINAL: No nausea, vomiting, or diarrhea. GENITOURINARY: No dysuria or frequency. MUSCULOSKELETAL: Normal pains. No new onset of muscle aches or joint pain. SKIN: No new skin rashes. NEUROLOGIC: No headaches, diplopia or blurred vision. FAMILY HISTORY: No family history of early lung cancer. PHYSICAL EXAMINATION: GENERAL: Morbid obese individual with a body mass index of 55, in no respiratory distress. Room air saturation 94%. Since she has been here, she has been afebrile. HEENT: Eyes, the sclerae were nonicteric. NECK: Jugular venous distention could not be assessed secondary to body habitus. CHEST: Full expansion. LUNGS: Diminished air flow with no wheezes. CARDIOVASCULAR: Regular rate and rhythm with S1, S2, no S3. ABDOMEN: Soft, obese. EXTREMITIES: Some edema. SKIN: Shows some skin changes in the lower extremities compatible with venous insufficiency. NEUROLOGIC: The patient was awake, alert, following commands. A detailed neuro exam was not performed. LABORATORY DATA: White count was elevated. Hemoglobin and hematocrit of 9.8 and 29. Electrolytes were noted. BUN and creatinine were normal. Sodium at one point was 127, 131 now. Albumin upon admission was low. IMPRESSION: 1. Progressive dyspnea, tachypnea secondary to acute exacerbation of chronic obstructive pulmonary disease and pneumonia. 2. Abnormal CT chest revealing small left-sided effusion with some atelectasis. 3. Secondary pulmonary hypertension. 4. Obstructive sleep apnea. The patient on home CPAP. 5. Morbid obesity. 6. Hyponatremia, suspect may be related to an infection or medications. 7. Acute bronchitis. 8. Depression. 9. Atypical chest pain. 10. Acute on chronic diastolic heart failure. PLAN: 1. The patient has been afebrile for over 46 hours. We will switch Zosyn to Augmentin, discharge home when okay with other consultants. 2. Follow up in the office in 2 months with a repeat CT of the chest. 3. Continue CPAP for obstructive sleep apnea. 4. Avoid tobacco. I do appreciate the privilege in sharing this patient's care. NITO BARNETT MD DR: FRANK/sreedhar JOB#: [id number] / [id number] Ritesh Ramirez MD
[2017-12-25 03:00] VITALS: BP 136/63
[2017-12-25] MEDS: LEVOTHYROXINE 125 MCG TABLET PO SCH (06:31)
[2017-12-25 07:00] VITALS: BP 140/83
[2017-12-25] MEDS: INSULIN LISPRO 300 UNITS/3 ML INSULN.PEN. SQ SCH ×2 (07:30→11:30)
--- NOTE | 2017-12-25 08:09 | PDOC ---
PULMONARY PROGRESS NOTES Subjective PT NOT MORE SOA Vitals Vital Signs Date Time Temp Pulse Resp B/P (MAP) Pulse Ox O2 Delivery O2 Flow Rate FiO2 12/25/17 03:00 97.7 73 18 136/63 (87) 99 Nasal Cannula 2.0 97.7 ROS: No Nausea, No Chest Pain, No Abdominal Pain, No Increase Cough Lungs: Clear Cardiovascular: S1, S2, Other (OBESE) Abdomen: Soft Neuro Exam: Alert Extremities: No Edema Skin: Warm Labs Laboratory Tests Test 12/23/17 08:21 12/23/17 12:07 12/23/17 17:54 12/23/17 20:40 Glucose (Fingerstick) 102 mg/dL (70-99) 111 mg/dL (70-99) 103 mg/dL (70-99) 128 mg/dL (70-99) Test 12/24/17 07:33 12/24/17 10:30 12/24/17 11:32 12/24/17 16:55 Glucose (Fingerstick) 107 mg/dL (70-99) 141 mg/dL (70-99) 109 mg/dL (70-99) Sodium Level 131 mmol/L (136-145) Potassium Level 4.3 mmol/L (3.5-5.1) Chloride Level 92 mmol/L (98-107) Carbon Dioxide Level 34 mmol/L (21-32) Anion Gap 5 (6-14) Blood Urea Nitrogen 16 mg/dL (7-20) Creatinine 1.0 mg/dL (0.6-1.0) Estimated GFR (Cockcroft-Gault) 57.1 Glucose Level 145 mg/dL (70-99) Serum Osmolality 276 mOsm/Kg (279-304) Calcium Level 9.2 mg/dL (8.5-10.1) Test 12/24/17 21:07 Glucose (Fingerstick) 129 mg/dL (70-99) Laboratory Tests Test 12/24/17 10:30 12/24/17 11:32 12/24/17 16:55 12/24/17 21:07 Sodium Level 131 mmol/L (136-145) Potassium Level 4.3 mmol/L (3.5-5.1) Chloride Level 92 mmol/L (98-107) Carbon Dioxide Level 34 mmol/L (21-32) Anion Gap 5 (6-14) Blood Urea Nitrogen 16 mg/dL (7-20) Creatinine 1.0 mg/dL (0.6-1.0) Estimated GFR (Cockcroft-Gault) 57.1 Glucose Level 145 mg/dL (70-99) Serum Osmolality 276 mOsm/Kg (279-304) Calcium Level 9.2 mg/dL (8.5-10.1) Glucose (Fingerstick) 141 mg/dL (70-99) 109 mg/dL (70-99) 129 mg/dL (70-99) Medications Active Scripts Medications Dose Route/Sig Max Daily Dose Days Date Category Synthroid (Levothyroxine Sodium) 125 Mcg Tablet 1 Tab PO DAILY 12/21/17 Reported Lisinopril 20 Mg Tablet 1 Tab PO DAILY 11/16/13 Reported Ranitidine Hcl 150 Mg Capsule 150 Mg PO BID 05/24/13 Reported Aleve (Naproxen Sodium) 220 Mg Tablet 220 Mg PO PRN DAILY 05/24/13 Reported Mupirocin Ointment (Mupirocin) 22 Gm Oint...g. 22 Gm TP PRN DAILY 05/24/13 Reported Fluoxetine Hcl 40 Mg Capsule 40 Mg PO DAILY 05/24/13 Reported Aspir 81 (Aspirin) 81 Mg Tablet.dr 81 Mg PO DAILY 05/24/13 Reported Allopurinol 300 Mg Tablet 300 Mg PO DAILY 05/24/13 Reported Ferrous Sulfate 325 Mg Tablet.dr 650 Mg PO DAILY 05/24/13 Reported Claritin (Loratadine) 10 Mg Capsule 10 Mg PO DAILY 05/24/13 Reported Hydrochlorothiazide Tablet (Hydrochlorothiazide) 50 Mg Tablet 50 Mg PO DAILY 05/24/13 Reported Actos (Pioglitazone Hcl) 45 Mg Tablet 45 Mg PO DAILY 05/24/13 Reported Toprol Xl (Metoprolol Succinate) 50 Mg Tab.er.24h 150 Mg PO DAILY 05/24/13 Reported Doxazosin Mesylate 4 Mg Tablet 2 Mg PO HS 05/24/13 Reported Metformin Hcl 1,000 Mg Tablet 1,000 Mg PO BID 05/24/13 Reported Simvastatin 40 Mg Tablet 40 Mg PO DAILY 05/24/13 Reported Omeprazole 40 Mg Capsule.dr 40 Mg PO DAILY 05/24/13 Reported Co Q-10 (Ubidecarenone) 100 Mg Capsule 100 Mg PO 05/24/13 Reported Cinnamon (Cinnamon Bark) 500 Mg Capsule 500 Mg PO DAILY 05/24/13 Reported Lutein-Zeaxanthin 25-5 Mg Sfgl (Lutein/Zeaxanthin) 1 Each Capsule 1 Each PO DAILY 05/24/13 Reported Magnesium 250 Mg Tablet 250 Mg PO DAILY 05/24/13 Reported Impression . IMPRESSION: 1. Progressive dyspnea, tachypnea secondary to acute exacerbation of chronic obstructive pulmonary disease and pneumonia. 2. Abnormal CT chest revealing small left-sided effusion with some atelectasis. 3. Secondary pulmonary hypertension. 4. Obstructive sleep apnea. The patient on home CPAP. 5. Morbid obesity. 6. Hyponatremia, suspect may be related to an infection or medications. 7. Acute bronchitis. 8. Depression. 9. Atypical chest pain. 10. Acute on chronic diastolic heart failure. Plan . HOME OK BY ME FOLLOW UP IN OFFICE PT WALK IN HALLWAY 02SAT GREATER THAN 90 CPAP AT HOME NITO BARNETT MD Dec 25, 2017 08:09
[2017-12-25 08:44] LABS: BASO # 0.1 x10^3/uL (0.0-0.2); BASO % 1 % (0-3); EOS # 0.3 x10^3/uL (0.0-0.7); EOS % 4 % (0-3); HEMATOCRIT 27.1 % (36.0-47.0); HEMOGLOBIN 9.3 g/dL (12.0-15.5); LYMPH % 12 % (24-48); MEAN CORPUSCULAR HEMOGLOBIN 29 pg (25-35); MEAN CORPUSCULAR HGB CONC 34 g/dL (31-37); MEAN CORPUSCULAR VOLUME 86 fL (79-100); MONO # 0.6 x10^3/uL (0.0-1.1); MONO % 8 % (0-9); NEUT # 6.2 x10^3uL (1.8-7.7); NEUT % 76 % (31-73); PLATELET COUNT 340 x10^3/uL (140-400); RED BLOOD COUNT 3.16 x10^6/uL (3.50-5.40); RED CELL DISTRIBUTION WIDTH 17.2 % (11.5-14.5); WHITE BLOOD COUNT 8.1 x10^3/uL (4.0-11.0)
[2017-12-25] MEDS: metFORMIN 500 MG TABLET PO SCH (08:51)
[2017-12-25] MEDS: POTASSIUM CHLORIDE 10 MEQ TABLET.ER. PO SCH (08:51)
[2017-12-25] MEDS: ASCORBIC ACID 500 MG TABLET PO SCH (08:51)
[2017-12-25] MEDS: AMOXICILLIN/K CLAV 875/125MG TABLET. PO SCH (08:51)
[2017-12-25] MEDS: CETIRIZINE HCL 10 MG TABLET. PO SCH (08:51)
[2017-12-25] MEDS: LACTOBACILLUS RHAMNOSUS GG 1 CAPSULE. PO SCH (08:52)
[2017-12-25] MEDS: FUROSEMIDE 40 MG TABLET. PO SCH (08:52)
[2017-12-25] MEDS: PANTOPRAZOLE 40 MG TABLET.DR. PO SCH (08:52)
[2017-12-25] MEDS: METOPROLOL SUCC 24HR ER 100 MG TAB.ER.24H. PO SCH (08:52)
[2017-12-25] MEDS: PIOGLITAZONE 15 MG TABLET. PO SCH (08:52)
[2017-12-25 08:53] LABS: CALCIUM 8.7 mg/dL (8.5-10.1); CREATININE 0.9 mg/dL (0.6-1.0); GFR 64.5
[2017-12-25] MEDS: MULTIVITAMIN with MINERAL TABLET. PO SCH (08:54)
[2017-12-25] MEDS: MUPIROCIN 2 % NASAL OINTMENT 22GM TUBE. TP SCH (08:55)
--- NOTE | 2017-12-25 09:17 | PDOC ---
SUBJECTIVE ROS No complaints OBJECTIVE Vital Signs Vital Signs Date Time Temp Pulse Resp B/P (MAP) Pulse Ox O2 Delivery O2 Flow Rate FiO2 12/25/17 08:52 74 140/83 12/25/17 07:00 97.8 18 98 Room Air 2.0 97.8 I & 0 Intake and Output 12/25/17 07:00 Intake Total 1010 ml Output Total 500 ml Balance 510 ml Intake Oral 1010 ml Output Urine Total 500 ml PHYSICAL EXAM Physical Exam General: NAD HEENT: OM moist Lungs: Non labored, CTA bilat Heart: Regular rate, Abdomen: Soft,obese Extremities: Trace to 1+ Skin: healed right otto wound. venous dermatitis with dry skin to LE. DIAGNOSIS/ASSESSMENT Assessment & Plan HYPONATREMIA- Improving Avoid Thiazides Restrict free water serum Osm mildly low, Urine Osm pending BRONCHITIS- as per Primary ACUTE DIASTOLIC CHF- Hold Thiazide OBESITY DM II- as per Primary HTN- controlled DEPRESSION-ON SSRI If dced follow with PCP COMMENT/RELEVANT DATA Meds Current Medications Medications (Trade) Dose Ordered Sig/Trent Start Time Stop Time Status Last Admin Dose Admin Albuterol/ Ipratropium (Duoneb) 3 ml 1X ONCE 12/21/17 11:30 12/21/17 11:31 DC Allopurinol (Zyloprim) 300 mg QHS 12/21/17 21:00 12/24/17 21:20 300 MG Amlodipine Besylate (Norvasc) 5 mg QHS 12/23/17 21:00 12/24/17 21:15 5 MG Amoxicillin/ Clavulanate Potassium (Augmentin 875/ 125mg) 1 tab BID 12/24/17 21:00 12/25/17 08:51 1 TAB Ascorbic Acid (Vitamin C) 500 mg DAILY 12/22/17 14:30 12/25/17 08:51 500 MG Aspirin (Ecotrin) 81 mg QHS 12/21/17 21:00 12/24/17 21:18 81 MG Atorvastatin Calcium (Lipitor) 20 mg QHS 12/23/17 21:00 12/24/17 21:18 20 MG Cetirizine HCl (ZyrTEC) 10 mg DAILY 12/22/17 09:00 12/25/17 08:51 10 MG Dextrose (Dextrose 50%-Water Syringe) 12.5 gm PRN Q15MIN PRN 12/21/17 15:30 Doxazosin Mesylate (Cardura) 2 mg HS 12/21/17 21:00 12/24/17 21:19 2 MG Enoxaparin Sodium (Lovenox 60mg Syringe) 60 mg Q12HR 12/21/17 21:00 12/25/17 08:54 60 MG Ferrous Sulfate (Feosol) 650 mg QHS 12/21/17 21:00 12/24/17 21:17 650 MG Fluoxetine HCl (PROzac) 40 mg QHS 12/21/17 21:00 12/24/17 21:18 40 MG Furosemide (Lasix) 40 mg DAILY 12/23/17 15:00 12/25/17 08:52 40 MG Hydrochlorothiazide (Hydrodiuril) 50 mg DAILY 12/22/17 09:00 12/22/17 14:05 DC Insulin Human Lispro (HumaLOG) 0-7 UNITS QIDACHS 12/22/17 07:30 Lactobacillus Rhamnosus (Culturelle) 1 cap BID 12/22/17 09:00 12/25/17 08:52 1 CAP Levothyroxine Sodium (Synthroid) 125 mcg DAILY06 12/22/17 06:00 12/25/17 06:31 125 MCG Lisinopril (Prinivil) 20 mg QHS 12/21/17 21:00 12/23/17 11:30 DC 12/21/17 22:18 20 MG Magnesium Oxide (Magnesium Oxide) 200 mg QHS 12/21/17 21:00 12/24/17 21:17 200 MG Magnesium Sulfate 50 ml @ 25 mls/hr 1X ONCE 12/22/17 10:30 12/22/17 12:29 DC 12/22/17 11:04 25 MLS/HR Metformin HCl (Glucophage) 1,000 mg BIDWMEALS 12/21/17 17:00 12/25/17 08:51 1,000 MG Metoprolol Succinate (Toprol Xl) 50 mg DAILY 12/23/17 12:00 12/25/17 08:52 50 MG Multivitamins (Thera M Plus) 1 tab DAILY 12/22/17 14:30 12/25/17 08:54 1 TAB Mupirocin (Bactroban) 22 luc DAILY 12/21/17 16:15 12/25/17 08:55 22 LUC Naproxen (Naprosyn) 250 mg PRN DAILY PRN 12/21/17 17:00 Non-Formulary Medication (Ranitidine Hcl ) 150 mg BID 12/21/17 21:00 UNV Pantoprazole Sodium (Protonix) 40 mg DAILYAC 12/22/17 07:30 12/25/17 08:52 40 MG Pioglitazone HCl (Actos) 45 mg DAILY 12/22/17 09:00 12/25/17 08:52 45 MG Piperacillin Sod/ Tazobactam Sod (Zosyn Per Pharmacy) 1 each PRN DAILY PRN 12/21/17 19:00 12/24/17 15:43 DC Piperacillin Sod/ Tazobactam Sod 3.375 gm/Sodium Chloride 50 ml @ 100 mls/hr Q6HRS 12/21/17 20:00 12/24/17 14:43 DC 12/24/17 12:07 100 MLS/HR Potassium Chloride (Klor-Con) 40 meq 1X ONCE 12/23/17 12:00 12/23/17 12:06 DC Simvastatin (Zocor) 40 mg QHS 12/21/17 21:00 12/23/17 11:34 DC 12/22/17 21:49 40 MG Lab Laboratory Tests Test 12/24/17 10:30 12/24/17 11:32 12/24/17 16:55 12/24/17 21:07 Sodium Level 131 mmol/L (136-145) Potassium Level 4.3 mmol/L (3.5-5.1) Chloride Level 92 mmol/L (98-107) Carbon Dioxide Level 34 mmol/L (21-32) Anion Gap 5 (6-14) Blood Urea Nitrogen 16 mg/dL (7-20) Creatinine 1.0 mg/dL (0.6-1.0) Estimated GFR (Cockcroft-Gault) 57.1 Glucose Level 145 mg/dL (70-99) Serum Osmolality 276 mOsm/Kg (279-304) Calcium Level 9.2 mg/dL (8.5-10.1) Glucose (Fingerstick) 141 mg/dL (70-99) 109 mg/dL (70-99) 129 mg/dL (70-99) Test 12/25/17 07:26 12/25/17 08:30 Glucose (Fingerstick) 107 mg/dL (70-99) White Blood Count 8.1 x10^3/uL (4.0-11.0) Red Blood Count 3.16 x10^6/uL (3.50-5.40) Hemoglobin 9.3 g/dL (12.0-15.5) Hematocrit 27.1 % (36.0-47.0) Mean Corpuscular Volume 86 fL (79-100) Mean Corpuscular Hemoglobin 29 pg (25-35) Mean Corpuscular Hemoglobin Concent 34 g/dL (31-37) Red Cell Distribution Width 17.2 % (11.5-14.5) Platelet Count 340 x10^3/uL (140-400) Neutrophils (%) (Auto) 76 % (31-73) Lymphocytes (%) (Auto) 12 % (24-48) Monocytes (%) (Auto) 8 % (0-9) Eosinophils (%) (Auto) 4 % (0-3) Basophils (%) (Auto) 1 % (0-3) Neutrophils # (Auto) 6.2 x10^3uL (1.8-7.7) Lymphocytes # (Auto) 1.0 x10^3/uL (1.0-4.8) Monocytes # (Auto) 0.6 x10^3/uL (0.0-1.1) Eosinophils # (Auto) 0.3 x10^3/uL (0.0-0.7) Basophils # (Auto) 0.1 x10^3/uL (0.0-0.2) Sodium Level 132 mmol/L (136-145) Potassium Level 4.0 mmol/L (3.5-5.1) Chloride Level 94 mmol/L (98-107) Carbon Dioxide Level 34 mmol/L (21-32) Anion Gap 4 (6-14) Blood Urea Nitrogen 14 mg/dL (7-20) Creatinine 0.9 mg/dL (0.6-1.0) Estimated GFR (Cockcroft-Gault) 64.5 Glucose Level 105 mg/dL (70-99) Calcium Level 8.7 mg/dL (8.5-10.1) Thyroid Stimulating Hormone (TSH) 2.409 uIU/mL (0.358-3.74) Results All relevant outside records, renal labs, imaging studies, telemetry/EKG's were reviewed. HOLLEY CALDERÓN MD Dec 25, 2017 09:16
[2017-12-25 11:00] VITALS: BP 150/67
--- NOTE | 2017-12-25 12:36 | PDOC ---
PROGRESS NOTES Chief Complaint Chief Complaint Bronchitis/URI - resolving Diastolic CHF Hyponatremia - labs pending Hypokalemia - labs pending H/o HTN H/o DM2 H/o anemia H/o hypothyroidism Obesity History of Present Illness History of Present Illness Pt seen and examined while resting in bed w/NAD noted Discussed w/RN Pt complains of a tender spot on her chest when she pushes on it that began when she bent over to pick something up. She feels like it may be a muscle. She states that her SOA has improved. Vitals Vitals Vital Signs Date Time Temp Pulse Resp B/P (MAP) Pulse Ox O2 Delivery O2 Flow Rate FiO2 12/25/17 08:52 74 140/83 12/25/17 08:00 Room Air 2.0 12/25/17 07:00 97.8 18 98 97.8 Physical Exam Physical Exam Neuro: Normal speech, Cranial nerves 3-12 NL Psych/Mental Status: Mental status NL, Mood NL MSK: No deformity General: Alert, Oriented X3, Cooperative, No acute distress Heart: Regular rate, No murmurs Lungs: Clear Abdomen: Normal bowel sounds, Soft Extremities: No clubbing, Other (2+ EDEMA) Skin: No significant lesion Labs LABS Laboratory Tests Test 12/24/17 16:55 12/24/17 21:07 12/25/17 07:26 12/25/17 08:30 Glucose (Fingerstick) 109 mg/dL (70-99) 129 mg/dL (70-99) 107 mg/dL (70-99) White Blood Count 8.1 x10^3/uL (4.0-11.0) Red Blood Count 3.16 x10^6/uL (3.50-5.40) Hemoglobin 9.3 g/dL (12.0-15.5) Hematocrit 27.1 % (36.0-47.0) Mean Corpuscular Volume 86 fL (79-100) Mean Corpuscular Hemoglobin 29 pg (25-35) Mean Corpuscular Hemoglobin Concent 34 g/dL (31-37) Red Cell Distribution Width 17.2 % (11.5-14.5) Platelet Count 340 x10^3/uL (140-400) Neutrophils (%) (Auto) 76 % (31-73) Lymphocytes (%) (Auto) 12 % (24-48) Monocytes (%) (Auto) 8 % (0-9) Eosinophils (%) (Auto) 4 % (0-3) Basophils (%) (Auto) 1 % (0-3) Neutrophils # (Auto) 6.2 x10^3uL (1.8-7.7) Lymphocytes # (Auto) 1.0 x10^3/uL (1.0-4.8) Monocytes # (Auto) 0.6 x10^3/uL (0.0-1.1) Eosinophils # (Auto) 0.3 x10^3/uL (0.0-0.7) Basophils # (Auto) 0.1 x10^3/uL (0.0-0.2) Sodium Level 132 mmol/L (136-145) Potassium Level 4.0 mmol/L (3.5-5.1) Chloride Level 94 mmol/L (98-107) Carbon Dioxide Level 34 mmol/L (21-32) Anion Gap 4 (6-14) Blood Urea Nitrogen 14 mg/dL (7-20) Creatinine 0.9 mg/dL (0.6-1.0) Estimated GFR (Cockcroft-Gault) 64.5 Glucose Level 105 mg/dL (70-99) Calcium Level 8.7 mg/dL (8.5-10.1) Thyroid Stimulating Hormone (TSH) 2.409 uIU/mL (0.358-3.74) Review of Systems Review of Systems Pt denies SOA and abdominal pain. Assessment and Plan Assessmemt and Plan Problems Medical Problems: (1) CHF (congestive heart failure) Status: Acute (2) Cough Status: Acute (3) Hyponatremia Status: Acute Assessment: Bronchitis/URI - resolving Acute diastolic CHF Hyponatremia - labs pending Hypokalemia - labs pending H/o HTN H/o DM2 H/o anemia H/o hypothyroidism Obesity Plan: Potential d/c today pending labs and okay from Dr. Raymond F/u w/cardio as outpatient upon d/c Cont PO ABx Home meds PT/OT Monitor labs Comment Review of Relevant I have reviewed the following items teressa (where applicable) has been applied. Labs Laboratory Tests Test 12/23/17 17:54 12/23/17 20:40 12/24/17 07:33 12/24/17 10:30 Glucose (Fingerstick) 103 mg/dL (70-99) 128 mg/dL (70-99) 107 mg/dL (70-99) Sodium Level 131 mmol/L (136-145) Potassium Level 4.3 mmol/L (3.5-5.1) Chloride Level 92 mmol/L (98-107) Carbon Dioxide Level 34 mmol/L (21-32) Anion Gap 5 (6-14) Blood Urea Nitrogen 16 mg/dL (7-20) Creatinine 1.0 mg/dL (0.6-1.0) Estimated GFR (Cockcroft-Gault) 57.1 Glucose Level 145 mg/dL (70-99) Serum Osmolality 276 mOsm/Kg (279-304) Calcium Level 9.2 mg/dL (8.5-10.1) Test 12/24/17 11:32 12/24/17 16:55 12/24/17 21:07 12/25/17 07:26 Glucose (Fingerstick) 141 mg/dL (70-99) 109 mg/dL (70-99) 129 mg/dL (70-99) 107 mg/dL (70-99) Test 12/25/17 08:30 White Blood Count 8.1 x10^3/uL (4.0-11.0) Red Blood Count 3.16 x10^6/uL (3.50-5.40) Hemoglobin 9.3 g/dL (12.0-15.5) Hematocrit 27.1 % (36.0-47.0) Mean Corpuscular Volume 86 fL (79-100) Mean Corpuscular Hemoglobin 29 pg (25-35) Mean Corpuscular Hemoglobin Concent 34 g/dL (31-37) Red Cell Distribution Width 17.2 % (11.5-14.5) Platelet Count 340 x10^3/uL (140-400) Neutrophils (%) (Auto) 76 % (31-73) Lymphocytes (%) (Auto) 12 % (24-48) Monocytes (%) (Auto) 8 % (0-9) Eosinophils (%) (Auto) 4 % (0-3) Basophils (%) (Auto) 1 % (0-3) Neutrophils # (Auto) 6.2 x10^3uL (1.8-7.7) Lymphocytes # (Auto) 1.0 x10^3/uL (1.0-4.8) Monocytes # (Auto) 0.6 x10^3/uL (0.0-1.1) Eosinophils # (Auto) 0.3 x10^3/uL (0.0-0.7) Basophils # (Auto) 0.1 x10^3/uL (0.0-0.2) Sodium Level 132 mmol/L (136-145) Potassium Level 4.0 mmol/L (3.5-5.1) Chloride Level 94 mmol/L (98-107) Carbon Dioxide Level 34 mmol/L (21-32) Anion Gap 4 (6-14) Blood Urea Nitrogen 14 mg/dL (7-20) Creatinine 0.9 mg/dL (0.6-1.0) Estimated GFR (Cockcroft-Gault) 64.5 Glucose Level 105 mg/dL (70-99) Calcium Level 8.7 mg/dL (8.5-10.1) Thyroid Stimulating Hormone (TSH) 2.409 uIU/mL (0.358-3.74) Laboratory Tests Test 12/24/17 16:55 12/24/17 21:07 12/25/17 07:26 12/25/17 08:30 Glucose (Fingerstick) 109 mg/dL (70-99) 129 mg/dL (70-99) 107 mg/dL (70-99) White Blood Count 8.1 x10^3/uL (4.0-11.0) Red Blood Count 3.16 x10^6/uL (3.50-5.40) Hemoglobin 9.3 g/dL (12.0-15.5) Hematocrit 27.1 % (36.0-47.0) Mean Corpuscular Volume 86 fL (79-100) Mean Corpuscular Hemoglobin 29 pg (25-35) Mean Corpuscular Hemoglobin Concent 34 g/dL (31-37) Red Cell Distribution Width 17.2 % (11.5-14.5) Platelet Count 340 x10^3/uL (140-400) Neutrophils (%) (Auto) 76 % (31-73) Lymphocytes (%) (Auto) 12 % (24-48) Monocytes (%) (Auto) 8 % (0-9) Eosinophils (%) (Auto) 4 % (0-3) Basophils (%) (Auto) 1 % (0-3) Neutrophils # (Auto) 6.2 x10^3uL (1.8-7.7) Lymphocytes # (Auto) 1.0 x10^3/uL (1.0-4.8) Monocytes # (Auto) 0.6 x10^3/uL (0.0-1.1) Eosinophils # (Auto) 0.3 x10^3/uL (0.0-0.7) Basophils # (Auto) 0.1 x10^3/uL (0.0-0.2) Sodium Level 132 mmol/L (136-145) Potassium Level 4.0 mmol/L (3.5-5.1) Chloride Level 94 mmol/L (98-107) Carbon Dioxide Level 34 mmol/L (21-32) Anion Gap 4 (6-14) Blood Urea Nitrogen 14 mg/dL (7-20) Creatinine 0.9 mg/dL (0.6-1.0) Estimated GFR (Cockcroft-Gault) 64.5 Glucose Level 105 mg/dL (70-99) Calcium Level 8.7 mg/dL (8.5-10.1) Thyroid Stimulating Hormone (TSH) 2.409 uIU/mL (0.358-3.74) Medications Current Medications Albuterol/ Ipratropium (Duoneb) 3 ml 1X ONCE NEB ; Start 12/21/17 at 11:30; Stop 12/21/17 at 11:31; Status DC Furosemide (Lasix) 40 mg 1X ONCE IVP ; Start 12/21/17 at 14:15; Stop at 14:16; Status DC Insulin Human Lispro (HumaLOG) 0-7 UNITS TIDWMEALS SQ ; Start 12/21/17 at 17:00 ; Stop 12/22/17 at 01:05; Status DC Dextrose (Dextrose 50%-Water Syringe) 12.5 gm PRN Q15MIN PRN IV SEE COMMENTS; Start 12/21/17 at 15:30 Allopurinol (Zyloprim) 300 mg QHS PO Last administered on 12/24/17at 21:20; Start 12/21/17 at 21:00 Aspirin (Ecotrin) 81 mg QHS PO Last administered on 12/24/17 21:18; Start at 21:00 Doxazosin Mesylate (Cardura) 2 mg HS PO Last administered on 12/24/17at 21:19; Start 12/21/17 at 21:00 Lisinopril (Prinivil) 20 mg QHS PO Last administered on 12/21/17at 22:18; Start 12/21/17 at 21:00; Stop 12/23/17 at 11:30; Status DC Ferrous Sulfate (Feosol) 650 mg QHS PO Last administered on 12/24/17 21:17; Start 12/21/17 at 21:00 Fluoxetine HCl (PROzac) 40 mg QHS PO Last administered on 12/24/17 21:18; Start 12/21/17 at 21:00 Hydrochlorothiazide (Hydrodiuril) 50 mg DAILY PO ; Start 12/22/17 at 09:00; Stop 12/22/17 at 14:05; Status DC Levothyroxine Sodium (Synthroid) 125 mcg DAILY06 PO Last administered on at 06:31; Start 12/22/17 at 06:00 Cetirizine HCl (ZyrTEC) 10 mg DAILY PO Last administered on 12/25/17 08:51; Start 12/22/17 at 09:00 Magnesium Oxide (Magnesium Oxide) 200 mg QHS PO Last administered on at 21:17; Start 12/21/17 at 21:00 Metformin HCl (Glucophage) 1,000 mg BIDWMEALS PO Last administered on at 08:51; Start 12/21/17 at 17:00 Metoprolol Succinate (Toprol Xl) 150 mg DAILY PO Last administered on at 08:54; Start 12/22/17 at 09:00; Stop 12/22/17 at 14:05; Status DC Naproxen (Naprosyn) 250 mg PRN DAILY PRN PO INFLAMMATION; Start 12/21/17 at 17 :00 Pantoprazole Sodium (Protonix) 40 mg DAILYAC PO Last administered on 08:52; Start 12/22/17 at 07:30 Pioglitazone HCl (Actos) 45 mg DAILY PO Last administered on 12/25/17at 08:52; Start 12/22/17 at 09:00 Non-Formulary Medication (Ranitidine Hcl ) 150 mg BID PO ; Start 12/21/17 at 21 :00; Status UNV Simvastatin (Zocor) 40 mg QHS PO Last administered on 12/22/17at 21:49; Start 12/21/17 at 21:00; Stop 12/23/17 at 11:34; Status DC Mupirocin (Bactroban) 22 luc DAILY TP Last administered on 12/25/17at 08:55; Start 12/21/17 at 16:15 Piperacillin Sod/ Tazobactam Sod (Zosyn Per Pharmacy) 1 each PRN DAILY PRN MC SEE COMMENTS; Start 12/21/17 at 19:00; Stop 12/24/17 at 15:43; Status DC Furosemide (Lasix) 40 mg BID92 IVP Last administered on 12/22/17at 08:55; Start 12/22/17 at 09:00; Stop 12/22/17 at 14:05; Status DC Potassium Chloride (Klor-Con) 10 meq DAILYWBKFT PO Last administered on at 08:51; Start 12/22/17 at 08:00 Enoxaparin Sodium (Lovenox 60mg Syringe) 60 mg Q12HR SQ Last administered on at 08:54; Start 12/21/17 at 21:00 Piperacillin Sod/ Tazobactam Sod 3.375 gm/Sodium Chloride 50 ml @ 100 mls/hr Q6HRS IV Last administered on 12/24/17at 12:07; Start 12/21/17 at 20:00; Stop 12/24/17 at 14:43; Status DC Insulin Human Lispro (HumaLOG) 0-7 UNITS QIDACHS SQ ; Start 12/22/17 at 07:30 Lactobacillus Rhamnosus (Culturelle) 1 cap BID PO Last administered on at 08:52; Start 12/22/17 at 09:00 Magnesium Sulfate 50 ml @ 25 mls/hr 1X ONCE IV Last administered on at 11:04; Start 12/22/17 at 10:30; Stop 12/22/17 at 12:29; Status DC Multivitamins (Thera M Plus) 1 tab DAILY PO Last administered on 12/25/17 08: 54; Start 12/22/17 at 14:30 Ascorbic Acid (Vitamin C) 500 mg DAILY PO Last administered on 12/25/17 08:51 ; Start 12/22/17 at 14:30 Furosemide (Lasix) 40 mg DAILY IVP Last administered on 12/22/17at 16:54; Start 12/23/17 at 09:00; Stop 12/23/17 at 10:23; Status DC Metoprolol Succinate (Toprol Xl) 100 mg DAILY PO Last administered on at 09:46; Start 12/23/17 at 09:00; Stop 12/23/17 at 11:26; Status DC Furosemide (Lasix) 40 mg DAILY IVP ; Start 12/23/17 at 10:30; Stop 12/23/17 at 11:26; Status DC Metoprolol Succinate (Toprol Xl) 50 mg DAILY PO Last administered on at 08:52; Start 12/23/17 at 12:00 Potassium Chloride (Klor-Con) 40 meq 1X ONCE PO Last administered on at 12:12; Start 12/23/17 at 11:30; Stop 12/23/17 at 11:33; Status DC Amlodipine Besylate (Norvasc) 5 mg QHS PO Last administered on 12/24/17at 21:15 ; Start 12/23/17 at 21:00 Atorvastatin Calcium (Lipitor) 20 mg QHS PO Last administered on 12/24/17at 21: 18; Start 12/23/17 at 21:00 Potassium Chloride (Klor-Con) 40 meq 1X ONCE PO ; Start 12/23/17 at 12:00; Stop 12/23/17 at 12:06; Status DC Furosemide (Lasix) 40 mg DAILY PO Last administered on 12/25/17at 08:52; Start 12/23/17 at 15:00 Amoxicillin/ Clavulanate Potassium (Augmentin 875/ 125mg) 1 tab BID PO Last administered on 12/25/17at 08:51; Start 12/24/17 at 21:00 Active Scripts Active Reported Synthroid (Levothyroxine Sodium) 125 Mcg Tablet 1 Tab PO DAILY Lisinopril 20 Mg Tablet 1 Tab PO DAILY Ranitidine Hcl 150 Mg Capsule 150 Mg PO BID Aleve (Naproxen Sodium) 220 Mg Tablet 220 Mg PO PRN DAILY Mupirocin Ointment (Mupirocin) 22 Gm Oint...g. 22 Gm TP PRN DAILY Fluoxetine Hcl 40 Mg Capsule 40 Mg PO DAILY Aspir 81 (Aspirin) 81 Mg Tablet.dr 81 Mg PO DAILY Allopurinol 300 Mg Tablet 300 Mg PO DAILY Ferrous Sulfate 325 Mg Tablet.dr 650 Mg PO DAILY Claritin (Loratadine) 10 Mg Capsule 10 Mg PO DAILY Hydrochlorothiazide Tablet (Hydrochlorothiazide) 50 Mg Tablet 50 Mg PO DAILY Actos (Pioglitazone Hcl) 45 Mg Tablet 45 Mg PO DAILY Toprol Xl (Metoprolol Succinate) 50 Mg Tab.er.24h 150 Mg PO DAILY Doxazosin Mesylate 4 Mg Tablet 2 Mg PO HS Metformin Hcl 1,000 Mg Tablet 1,000 Mg PO BID Simvastatin 40 Mg Tablet 40 Mg PO DAILY Omeprazole 40 Mg Capsule.dr 40 Mg PO DAILY Co Q-10 (Ubidecarenone) 100 Mg Capsule 100 Mg PO Cinnamon (Cinnamon Bark) 500 Mg Capsule 500 Mg PO DAILY Lutein-Zeaxanthin 25-5 Mg Sfgl (Lutein/Zeaxanthin) 1 Each Capsule 1 Each PO DAILY Magnesium 250 Mg Tablet 250 Mg PO DAILY Vitals/I & O Vital Sign - Last 24 Hours 12/24/17 12/24/17 12/24/17 12/24/17 15:20 19:43 20:00 21:15 Temp 98.0 98.0 98.0 98.0 Pulse 65 68 68 Resp 22 17 B/P (MAP) 168/75 (106) 135/58 (83) 135/58 Pulse Ox 99 99 O2 Delivery Room Air Room Air Room Air 12/24/17 12/24/17 12/25/17 12/25/17 21:19 23:28 03:00 07:00 Temp 97.6 97.7 97.8 97.6 97.7 97.8 Pulse 68 68 73 74 Resp 18 18 18 B/P (MAP) 135/58 138/62 (87) 136/63 (87) 140/83 (102) Pulse Ox 100 99 98 O2 Delivery Nasal Cannula Nasal Cannula Room Air O2 Flow Rate 2.0 2.0 2.0 12/25/17 12/25/17 08:00 08:52 Pulse 74 B/P (MAP) 140/83 O2 Delivery Room Air O2 Flow Rate 2.0 Intake and Output 12/24/17 12/24/17 12/25/17 15:00 23:00 07:00 Intake Total 60 ml 950 ml Output Total 500 ml Balance 60 ml 450 ml KEVAN ADAMS III DO Dec 25, 2017 12:36
== END 2017-12-25 15:03 | disposition home or self-care (01) | DRG 871 ==
LOC: ER 10:06 → 2 NORTH 14:00
PROVIDERS: ADMIT Family Medicine; ATTEND Family Medicine
DX: A41.9 Sepsis, unspecified organism (principal); I50.33 Acute on chronic diastolic (congestive) heart failure; J18.9 Pneumonia, unspecified organism; J44.0 Chronic obstructive pulmonary disease with (acute) lower respiratory infection; J44.1 Chronic obstructive pulmonary disease with (acute) exacerbation; E87.1 Hypo-osmolality and hyponatremia; J98.11 Atelectasis; Z68.43 Body mass index [BMI] 50.0-59.9, adult; J20.9 Acute bronchitis, unspecified; I11.0 Hypertensive heart disease with heart failure; E78.00 Pure hypercholesterolemia, unspecified; E11.9 Type 2 diabetes mellitus without complications; E03.9 Hypothyroidism, unspecified; K21.9 Gastro-esophageal reflux disease without esophagitis; G47.33 Obstructive sleep apnea (adult) (pediatric); M10.9 Gout, unspecified; I87.8 Other specified disorders of veins; E66.01 Morbid (severe) obesity due to excess calories; F41.9 Anxiety disorder, unspecified; F32.9 Major depressive disorder, single episode, unspecified; E78.5 Hyperlipidemia, unspecified; I27.29 Other secondary pulmonary hypertension; G89.29 Other chronic pain; E87.6 Hypokalemia; M19.90 Unspecified osteoarthritis, unspecified site; Z86.14 Personal history of Methicillin resistant Staphylococcus aureus infection; Z90.710 Acquired absence of both cervix and uterus; Z88.2 Allergy status to sulfonamides; Z88.6 Allergy status to analgesic agent; Z91.040 Latex allergy status; Z82.49 Family history of ischemic heart disease and other diseases of the circulatory system; Z79.899 Other long term (current) drug therapy; Z87.891 Personal history of nicotine dependence
CPT/HCPCS: 36415; 71045; 71046; 71250; 80048; 80053; 80061; 81001; 82553; 82962; 83735; 83880; 83930; 83935; 84443; 84484; 85007; 85025; 87641; 93005; 93306; 94640; 96365; 96375; J1650; J1815; J1940; J2543; J3475; 99285-25

== ENCOUNTER → 2018-02-16 | Outpatient (CLI) | payer MEDICARE ==
[~2018-02-16] MED LIST changes: +LEVO125T PO
--- NOTE | 2018-02-16 14:21 | KCIC ---
EXAM: Bilateral digital screening mammogram with tomosynthesis. HISTORY: 57-year-old female presents for screening mammography. TECHNIQUE: Full-field digital craniocaudal and mediolateral oblique 2D and 3D tomosynthesis images of both breasts are obtained for evaluation. Computer aided detection with [employer] software version 9.3 was applied. COMPARISON: 02/15/2017 and 02/13/2016 BREAST PARENCHYMAL DENSITY: Level B - Scattered fibroglandular densities. FINDINGS: There is no new suspicious mass, microcalcification or region of architectural distortion. There is stable areas of nodularity within both breasts. IMPRESSION: BI-RADS Category 2: Benign finding(s). RECOMMENDATION: Annual mammography is recommended. If your mammogram demonstrates that you have dense breast tissue, which could hide abnormalities, and if you have other risk factors for breast cancer that have been identified, you might benefit from supplemental screening tests that may be suggested by your ordering physician. Dense breast tissue, in and of itself, is a relatively common condition. This information is not provided to cause undue concern, but rather to raise your awareness and to promote discussion with your physician regarding the presence of other risk factors, in addition to dense breast tissue. A report of your mammography results will be sent to you and your physician. You should contact your physician if you have any questions or concerns regarding this report. Mammography is a sensitive method for finding small breast cancers, but it does not detect them all and is not a substitute for careful clinical examination. A negative mammogram does not negate a clinically suspicious finding and should not result in delay in biopsying a clinically suspicious abnormality. PQRS compliance statement - Patient information was entered into a reminder system with a target due date for the next mammogram. "Our facility is accredited by the [employer] Mammography Program." Electronically signed by: Yadi Adair MD (02/16/2018 2:17 PM) [id number]
== END | disposition home or self-care (01) ==
LOC: KCIC MAMMO 12:52
PROVIDERS: ATTEND Family Medicine
DX: Z12.31 Encounter for screening mammogram for malignant neoplasm of breast (principal)
CPT/HCPCS: 77063; 77067

== ENCOUNTER → 2018-03-08 | Outpatient (CLI) | payer MEDICARE ==
--- NOTE | 2018-03-08 15:26 | KCIC ---
CHEST PA LATERAL History: Effusion, pneumonia Comparison: 12/23/2017 Findings: 2 views of the chest are submitted. There is no infiltrate, pneumothorax, or effusion. The cardiac silhouette is stable. There is atherosclerotic calcification near aortic arch. Impression: 1. There is no of radiographic evidence of acute cardiopulmonary disease. Electronically signed by: Dwayne Kiser MD (03/08/2018 3:22 PM) [id number]
== END | disposition home or self-care (01) ==
LOC: KCIC 13:49
PROVIDERS: ATTEND Internal Medicine Pulmonary Disease
DX: J90 Pleural effusion, not elsewhere classified (principal); J18.9 Pneumonia, unspecified organism; I70.0 Atherosclerosis of aorta; Z87.891 Personal history of nicotine dependence
CPT/HCPCS: 71046

== ENCOUNTER → 2018-12-12 | Outpatient (CLI) | payer MEDICARE ==
[~2018-12-12] MED LIST changes: +OMEP40CA45 PO; -OMEP40CA5 PO
--- NOTE | 2018-12-12 14:40 | RAD ---
MR#: [id number] Date of Study: 12/12/2018 Ordering Physician: CHRISS MURRAY, Referring Physician: CHRISS MURRAY, Tech: MARIA ESTHER Avendaño, RDMS, RTR APPROVED REPORT Patient Location: OUT-PATIENT Indications Edema Risk Factors Hypertension Obesity Diabetes VELOCITY AND DOPPLER WAVEFORM ANALYSIS RIGHT cm/secWaveformSeverity LEFT cm/secWaveform Severity pCFA 168.3TriphasicpCFA 133.5Biphasic Prof Fem Art. 127.3Prof Fem Art. 70.2 Fem Art Prox. 125.2BiphasicFem Art Prox. 117.0Triphasic Fem Art Mid. 137.8TriphasicFem Art Mid. 109.2Triphasic Fem Art Dist. 115.7TriphasicFem Art Dist. 95.1Triphasic Pop Art(Fossa) 110.6BiphasicPop Art([place]) 81.1Triphasic [employer] Dist. 117.8BiphasicPTA Dist. 73.1Biphasic Per Art Dist.38.6MonophasicPer Art Dist.81.1Monophasic [place] Dist. 63.6MonophasicATA Dist. 55.4Monophasic DPA 28BiphasicDPA 64Biphasic Findings Grayscale images of the bilateral lower extremity arterial vessels reveal mild diffuse plaque. Above the knees bilaterally there is no significant obstructive disease with mostly triphasic wavefor ms. On the right below the knee there are robust posterior tibial and anterior tibial vessel waveforms al though in a monophasic and biphasic wave pattern suggestive of adventitial calcification and loss of arterial elasticity. There is likely diffuse disease of greater than 50% in the right peroneal artery and dorsalis pedis artery On the left below the knee there are monophasic waveforms in the peroneal and anterior tibial vessels but overall normal velocities. Critical Notification Critical Value: No <Conclusion> 1. No significant above knee disease bilaterally 2. 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 Signed by : Chriss Murray, Electronically Approved : 12/12/2018 14:39:59
--- NOTE | 2018-12-12 14:49 | RAD ---
MR#: [id number] Date of Study: 12/12/2018 Ordering Physician: CHRISS MURRAY, Referring Physician: CHRISS MURRAY, Tech: MARIA ESTHER Avendaño, RDMS, RTR APPROVED REPORT Patient Location : OUT-PATIENT Indications Skin Changes CHF/HTN Risk Factors Obesity Past History Compression Stockings : Diabetes Greater Saphenous Veins (GSV) Significant venous relux noted in the RIGHT GSV at the following levels : Superficial Femoral Junctio n, Proximal Thigh Significant venous relux noted in the LEFT GSV at the following levels : Superficial Femoral Junction Accessory Veins Right Anterior Accessory Vein : Present : Yes Reflux : No Leftt Anterior Accessory Vein : Present : Yes Reflux : No Right Posterior Accessory Vein : Present : No Reflux : No Left Posterior Accessory Vein : Present : No Reflux : No Findings Grayscale images of the bilateral saphenofemoral junctions are notable for a hypoechoic and septated area which appears in the left groin and is most likely nonvascular in nature. It measures approximat simba 5.7 x 1.8 x 4.6 cm. Limited evaluation due to the patient's body habitus. Spectral waveforms and color Doppler are notable for positive reflux of the bilateral saphenofemoral junctions. Extension of this reflux is noted into the right great saphenous vein. There is a right lo wer extremity wound as described on the clinician worksheet. The right great saphenous vein measures 7.3 mm and has a maximum reflux time of 1.6 seconds. The left great saphenous vein measures 11.7 mm and has a maximum reflux time of 2.02 seconds. The bilateral lesser saphenous veins were not well visualized. Critical Notification Critical Value: No <Conclusion> 1. Probable reflux in the bilateral greater saphenous veins and at the level of the saphenofemoral ju nctions. 2. Complex septated cyst/nonvascular lesion noted in the left groin with measurements as noted above. Consider CT scan for further evaluation. Signed by : Chriss Murray, Electronically Approved : 12/12/2018 14:49:36
== END | disposition home or self-care (01) ==
LOC: US 15:28
PROVIDERS: ATTEND Internal Medicine Cardiovascular Disease
DX: E11.51 Type 2 diabetes mellitus with diabetic peripheral angiopathy without gangrene (principal); I70.293 Other atherosclerosis of native arteries of extremities, bilateral legs; I11.0 Hypertensive heart disease with heart failure; I50.9 Heart failure, unspecified; E66.9 Obesity, unspecified
CPT/HCPCS: 93923; 93970

== ENCOUNTER → 2019-01-11 | Outpatient (CLI) | payer MEDICARE ==
[~2019-01-11] MED LIST changes: +SIMV40TA18 PO; -SIMV40TA3 PO
--- NOTE | 2019-01-12 17:01 | RAD ---
CT SCAN OF THE PELVIS WITHOUT CONTRAST Clinical indications: Venous insufficiency. Cyst. TECHNIQUE: Noncontrast helical CT scanning of the pelvis was performed. Multiplanar 2-D reconstructions were generated. Without contrast, the sensitivity to detect organ pathology and GI tract pathology is decreased. PQRS compliance Statement One or more of the following individualized dose reduction techniques were utilized for this study: 1. Automated exposure control 2. Adjustment of the mA and/or kV according to patient size 3. Use of iterative reconstruction technique COMPARISON: None available. FINDINGS: No enlarged pelvic lymphadenopathy is evident. Small umbilical hernia is seen containing only fat and no inflammatory change is seen. The urinary bladder wall is smooth. Uterus is surgically absent. Vaginal cuff is unremarkable. No dominant ovarian cyst or mass is evident. No lytic process is seen. No acute fracture is evident. There is mild degenerative spurring of the left femoral head and right femoral head. Mild degenerative joint space narrowing of both hip joints is seen. Mild degenerative osteoarthritis of both SI joints and symphysis pubis is seen. IMPRESSION: No acute abnormality is evident. 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 Electronically signed by: Curly Oneal MD (01/12/2019 4:58 PM) [facility]
== END | disposition home or self-care (01) ==
LOC: CT 08:10
PROVIDERS: ATTEND Internal Medicine Cardiovascular Disease
DX: I87.2 Venous insufficiency (chronic) (peripheral) (principal); I25.10 Atherosclerotic heart disease of native coronary artery without angina pectoris; M16.0 Bilateral primary osteoarthritis of hip; M47.898 Other spondylosis, sacral and sacrococcygeal region; K42.9 Umbilical hernia without obstruction or gangrene
CPT/HCPCS: 72192

== ENCOUNTER → 2019-02-17 | Outpatient (CLI) | payer MEDICARE ==
--- NOTE | 2019-03-02 13:23 | KCIC ---
BILATERAL SCREENING MAMMOGRAM, 3-D History: Routine screening. Comparison: Bilateral mammogram 02/16/2018. Technique: MLO and CC digital tomosynthesis (3D) images obtained. Radiologist reviewed these images on dedicated workstation. Findings: Breast Tissue Density B : There are scattered areas of fibroglandular density. Bilateral glandular nodularity is unchanged. There are no dominant masses, suspicious microcalcifications, or architectural distortion. IMPRESSION: No mammographic evidence of malignancy. Recommend routine screening. BI-RADS category 2: Benign findings. The images were reviewed with computer-aided detection. Patient information is entered into reminder system with a target due date for the next screening mammogram. Mammography is the most sensitive method for finding small breast cancers, but it does not detect them all and is not a substitute for careful clinical examination. A negative mammogram does not negate a clinically suspicious finding and should not result in delay in biopsying a clinically suspicious abnormality. "Our facility is accredited by the [employer] Mammography Program." Electronically signed by: Lee Landis MD (03/02/2019 1:20 PM) [id number]
== END | disposition home or self-care (01) ==
LOC: KCIC MAMMO 11:29
PROVIDERS: ATTEND Family Medicine
DX: Z12.31 Encounter for screening mammogram for malignant neoplasm of breast (principal)
CPT/HCPCS: 77063; 77067

== ENCOUNTER → 2020-01-19 | Outpatient (CLI) | payer MEDICARE ==
--- NOTE | 2020-01-19 09:01 | KCIC ---
CT scan of the chest without contrast 01/19/2020 CLINICAL HISTORY: COPD. TECHNIQUE: Unenhanced, contiguous, 5 mm axial sections were obtained through the chest and upper abdomen. One or more of the following individualized dose reduction techniques were utilized for this study: 1. Automated exposure control. 2. Adjustment of the mA and/or kV according to patient size. 3. Use of iterative reconstruction technique. FINDINGS: Comparison study is dated 12/21/2017. Scattered atherosclerotic calcification of the thoracic aorta and its branches is noted. The thoracic aorta tapers normally. Scattered coronary artery calcifications are seen. The heart is borderline enlarged. No hilar mediastinal or axillary lymphadenopathy is noted. A 6 mm calcified granuloma is seen involving the right middle lobe, unchanged. The small right pleural effusion and right lower lobe subsegmental atelectasis seen on the previous examination have resolved. Linear bands of scarring and/or subsegmental atelectasis are seen involving inferior aspect of the left lower lobe which have improved since the previous study. No acute pulmonary infiltrate is seen. No emphysematous changes are noted. No area of honeycombing is seen. No bronchiectasis is identified. No pleural effusion or pneumothorax is seen. Images through the upper abdomen demonstrate atherosclerotic calcification of the abdominal aorta. Very mild S-shaped curvature of the thoracolumbar spine is seen. Degenerative changes are seen involving the thoracic spine. IMPRESSION: No acute abnormality is seen. Electronically signed by: Brain Chavez MD (01/19/2020 8:59 AM) [id number]
== END ==
LOC: KCIC CT 08:02
PROVIDERS: ATTEND Internal Medicine Pulmonary Disease
DX: J98.11 Atelectasis (principal); J44.9 Chronic obstructive pulmonary disease, unspecified; J90 Pleural effusion, not elsewhere classified; I70.0 Atherosclerosis of aorta; I25.10 Atherosclerotic heart disease of native coronary artery without angina pectoris; I51.7 Cardiomegaly; M47.814 Spondylosis without myelopathy or radiculopathy, thoracic region; M43.8X5 Other specified deforming dorsopathies, thoracolumbar region
CPT/HCPCS: 71250

== ENCOUNTER → 2020-02-19 | Outpatient (CLI) | payer MEDICARE ==
--- NOTE | 2020-02-19 16:46 | KCIC ---
Bilateral digital screening mammograms with 3-D tomosynthesis: Reason for examination: Routine screening. Comparison is made to previous studies dated back to 02/11/2015. Bilateral mammograms in CC and oblique projections were obtained with 2-D imaging and 3-D tomosynthes is imaging on a [employer] unit and reviewed on the workstation. Interpretation was made with the benefit of CAD. The skin and nipples show no abnormalities. No abnormal axillary lymph nodes are seen. The breast par enchyma is predominantly fatty. (Breast density: Category A.) There are small parenchymal densities a gain seen bilaterally which are stable. There are no new dominant masses, suspicious calcifications o r architectural distortion. Impression: No evidence of malignancy. Recommend routine screening. BI-RAD Category 2: Benign. "Our facility is accredited by the [employer] Mammography Program." This patient's information has been entered into a reminder system for the patient to be notified wit h the results of her examination and a target date for the next mammogram. Electronically signed by: Indy Bernardo MD (02/19/2020 4:43 PM) [id number]
== END ==
LOC: KCIC MAMMO 09:14
PROVIDERS: ATTEND Family Medicine
DX: Z12.31 Encounter for screening mammogram for malignant neoplasm of breast (principal)
CPT/HCPCS: 77063; 77067

== ENCOUNTER → 2020-08-16 | Outpatient (CLI) | payer MEDICARE ==
[~2020-08-16] MED LIST changes: -HYDR50TA6 PO; +HYDR50TA9 PO; -LISI-334 PO; +LISI20TA18 PO; -OMEP40CA45 PO; +OMEP40CA7 PO
--- NOTE | 2020-08-16 17:48 | CARD ---
MR#: [id number] Date of Study: 08/16/2020 Ordering Physician: CHRISS MURRAY, Referring Physician: CHRISS MURRAY, Tech: Madeline Subha, [facility] APPROVED REPORT EXAM: Two-dimensional and M-mode echocardiogram with Doppler and color Doppler. Other Information Quality : AverageHR: 58bpm INDICATION Congestive Heart Failure RISK FACTORS Hypertension Hyperlipidemia Diabetes 2D DIMENSIONS RVDd4.2 (2.9-3.5cm)Left Atrium(2D)4.3 (1.6-4.0cm) IVSd0.9 (0.7-1.1cm)Aortic Root(2D)2.8 (2.0-3.7cm) LVDd6.0 (3.9-5.9cm)LVOT Diameter2.0 (1.8-2.4cm) PWd1.1 (0.7-1.1cm)LVDs3.2 (2.5-4.0cm) FS (%) 47.1 %SV141.0 ml Aortic Valve AoV Peak Edy.163.0cm/sAoV VTI37.2cm AO Peak GR.10.6mmHgLVOT Peak Edy.112.9cm/s LVOT VTI 26.82cmAO Mean GR.6mmHg MINOO (VMAX)1.89jh1ZYJ (VTI)2.22cm2 Mitral Valve MV E Avpacxfo64.0cm/sMV DECEL POMC236lr MV A Mmhrualn71.0cm/sMV KSC93tq E/A Ratio1.3MVA (PHT)3.50cm2 TDI E/Lateral E'7.8E/Medial E'10.4 Pulmonary Valve PV Peak Vncnfwiq574.9cm/sPV Peak Grad.4mmHg Tricuspid Valve TR P. Xnsstqmj034ko/sRAP WLYQNAII7mvJk TR Peak Gr.05euEbFSTX60dqKq Pulmonary Vein S1 Ypotwdwd28.5cm/sD2 Jnvcwtee25.3cm/s PVa smyhhwja677piqe LEFT VENTRICLE The Left Ventricle is borderline dilated. There is borderline to mild concentric left ventricular hyp ertrophy. The left ventricular systolic function is normal and the ejection fraction is within normal range. The Ejection Fraction is 50-55%. There is normal LV segmental wall motion. The left ventricul ar diastolic function and filling is normal for age. RIGHT VENTRICLE The right ventricle is normal size. There is normal right ventricular wall thickness. The right ventr icular systolic function is normal. ATRIA The left atrium is borderline dilated. The right atrium is borderline dilated. The interatrial septum is intact with no evidence for an atrial septal defect or patent foramen ovale as noted on 2-D or Do ppler imaging. AORTIC VALVE The aortic valve is normal in structure and function. Doppler and Color Flow revealed trace aortic re gurgitation. There is no significant aortic valvular stenosis. Calculated aortic valve area is 2.16 c m2 with maximum pressure gradient of 11 mmHg and mean pressure gradient of 6 mmHg. MITRAL VALVE The mitral valve is normal in structure and function. There is no evidence of mitral valve prolapse. There is no mitral valve stenosis. Doppler and Color-flow revealed trace mitral regurgitation. TRICUSPID VALVE The tricuspid valve is normal in structure and function. Doppler and Color Flow revealed trace tricus pid regurgitation with an estimated PAP of 36 mmHg. There is no tricuspid valve stenosis. PULMONIC VALVE The pulmonic valve is not well visualized. Doppler and Color Flow revealed trace pulmonic valvular re gurgitation. GREAT VESSELS The aortic root is normal in size. The ascending aorta is normal in size. The IVC is dilated. PERICARDIAL EFFUSION There is no evidence of significant pericardial effusion. Critical Notification Critical Value: No <Conclusion> The Left Ventricle is borderline dilated. The left ventricular systolic function is normal and the ejection fraction is within normal range. The Ejection Fraction is 50-55%. There is borderline to mild concentric left ventricular hypertrophy. Doppler and Color Flow revealed trace aortic regurgitation. There is no significant aortic valvular stenosis. Doppler and Color-flow revealed trace mitral regurgitation. Doppler and Color Flow revealed trace tricuspid regurgitation with an estimated PAP of 36 mmHg. Signed by : Rolo Owens MD Electronically Approved : 08/16/2020 17:48:30
== END ==
LOC: ECHO 10:14
PROVIDERS: ATTEND Internal Medicine Cardiovascular Disease
DX: I50.30 Unspecified diastolic (congestive) heart failure (principal); I51.7 Cardiomegaly
CPT/HCPCS: 93306

== ENCOUNTER → 2020-12-23 | Outpatient (CLI) | payer MEDICARE ==
--- NOTE | 2020-12-23 10:53 | KCIC ---
EXAM: Chest CT without intravenous contrast. HISTORY: COPD. Cigarette smoking. TECHNIQUE: Computed tomographic images of the chest were obtained without contrast. Multiplanar refor matting was performed. *One or more of the following individualized dose reduction techniques were utilized for this examina tion: 1. Automated exposure control. 2. Adjustment of the mA and/or kV according to patient size. 3. Use of iterative reconstruction technique. COMPARISON: 01/19/2020. FINDINGS: The heart is normal in size. There is calcified atherosclerotic plaque involving the aorta, coronary arteries and aortic arch great vessels. There is calcification of the mitral valve annulus. There is a common origin of the right innominate and left common carotid arteries, a normal aortic a rch branching variant. There is no mediastinal or hilar lymphadenopathy. There is no pneumothorax, pl eural effusion or infiltrate. There is no suspicious pulmonary nodule. There is suspected hepatomegal y. There is no acute finding involving the upper abdomen. There is a chronic compression fracture wit h superior endplate depression and suspected vertebroplasty changes at L2. IMPRESSION: 1. No acute thoracic finding or suspicious pulmonary nodule. 2. Suspected hepatomegaly. Electronically signed by: Yadi Adair MD (12/23/2020 10:50 AM) [id number]
== END ==
LOC: KCIC CT 09:47
PROVIDERS: ATTEND Internal Medicine Pulmonary Disease
DX: J44.9 Chronic obstructive pulmonary disease, unspecified (principal); I70.0 Atherosclerosis of aorta; I25.10 Atherosclerotic heart disease of native coronary artery without angina pectoris; I05.8 Other rheumatic mitral valve diseases; S22.000A Wedge compression fracture of unspecified thoracic vertebra, initial encounter for closed fracture; X58.XXXA Exposure to other specified factors, initial encounter; Y93.89 Activity, other specified; Y92.89 Other specified places as the place of occurrence of the external cause; Y99.8 Other external cause status
CPT/HCPCS: 71250

== ENCOUNTER → 2021-02-17 | Outpatient (CLI) | payer MEDICARE ==
--- NOTE | 2021-02-17 11:56 | KCIC ---
BILATERAL SCREENING MAMMOGRAM, 3-D History: Routine screening. Comparison: Bilateral mammogram 02/19/2020 and prior years. Technique: MLO and CC digital tomosynthesis (3D) images obtained. Radiologist reviewed these images on dedicated workstation. Findings: Breast Tissue Density A : The breasts are almost entirely fatty. Bilateral glandular nodularity is unchanged. There are no dominant masses, suspicious microcalcifications or architectural distortion. IMPRESSION: No mammographic evidence of malignancy. Recommend routine screening. BI-RADS category 2: Benign findings. The images were reviewed with computer-aided detection. Patient information is entered into reminder system with a target due date for the next screening [facility] mogram. Mammography is the most sensitive method for finding small breast cancers, but it does not detect the m all and is not a substitute for careful clinical examination. A negative mammogram does not negate a clinically suspicious finding and should not result in delay in biopsying a clinically suspicious a bnormality. "Our facility is accredited by the [employer] Mammography Program." Electronically signed by: Lee Landis MD (02/17/2021 11:54 AM) [id number]
== END ==
LOC: KCIC MAMMO 09:52
PROVIDERS: ATTEND Clinical Nurse Specialist Family Health
DX: Z12.31 Encounter for screening mammogram for malignant neoplasm of breast (principal)
CPT/HCPCS: 77063; 77067